=== PATIENT | female | born 1970 | race Caucasian/White ===

== ENCOUNTER 2016-05-17 13:02 | Emergency (ER) | payer OTHER ==
[~2016-05-17] VITALS: Ht 154.9 cm; Wt 70.7 kg
[~2016-05-17 13:02] MED LIST: HYDR-5688 PO; MELO7.5T5 PO; TRAM-10 PO
[2016-05-17 13:04] VITALS: TEMP 36.9; Ht 154.9 cm; Wt 70.7 kg
--- NOTE | 2016-05-17 14:15 | EMERGENCY ROOM VISIT NOTE ---
History First contact with patient: 13:52 Chief Complaint: ABDOMINAL PAIN Stated Complaint: STOMACH PAINS Nursing Triage Summary: abd pain and bloating passing no gas History of Present Illness The patient is a 45 year old female who presents to the Emergency Room with complaints of epigastric pain, which started 2 days ago, occurs intermittently, is sharp and localized with radiation laterally in abdomen but not into back or groin. Patient is unable to identify alleviating or exacerbating factors (does not feel any change upon sitting/standing/walking). She has not tried any new pain medications. This morning she awoke feeling nauseous with 3 episodes of vomiting, then dry heaving currently. Her last bowel bowel movement was 1 week ago. She has longstanding constipation but was concerned today with the abdominal pain and vomiting. She denies blood in stool. She took mineral oil and XLax, and Colace without effect. She has no urinary symptoms - no dysuria, frequency, urgency No fever and URI symptoms. No SOB no CP Sick contact: has stomach bug with diarrhea and vomiting. Personal history significant for Colonoscopy saw diverticulosis 20 years ago History of cholecystectomy GERD not on meds Started on [place] 300mg 3 weeks ago, which has been titrated up in the time since and is currently dosed at 1800mg TID Review of Systems See HPI for pertinent positives and negatives. A total of ten systems were reviewed and were otherwise negative. Past Medical/Surgical History Medical Problems: (1) Abdominal pain (2) Acute epigastric pain (3) Bilateral renal cysts (4) Chronic pain of right knee (5) Chronic pain of right knee (6) Epigastric abdominal pain (7) Epigastric abdominal pain (8) Flank pain (9) Flank pain (10) Gastritis (11) Intra-articular loose body (12) Intractable abdominal pain (13) Knee pain (14) Reflux (15) Right flank pain (16) Right flank pain (17) Right flank pain (18) Right upper quadrant abdominal pain (19) Ulcer (20) Uterine fibroid Surgical Problems: (1) History of cholecystectomy (2) History of tubal ligation (3) S/P ACL repair (4) S/P endometrial ablation Family History Patient reports no known family medical history. Social History Smoking Status: Former Smoker Alcohol Use: none Marital Status: in relationship Housing Status: lives with significant other Occupation Status: employed Current/Historical Medications Scheduled [place] Carbonate ([place] Carbonate), 600 MG PO TID Scheduled PRN Ondansetron Hcl (Zofran), 4 MG PO Q6 PRN for Nausea Allergies Coded Allergies: No Known Allergies (Verified , 05/17/16) Physical Exam Vital Signs Date Time Temp Pulse Resp B/P Pulse Ox O2 Delivery O2 Flow Rate FiO2 05/17/16 16:34 60 18 149/83 99 Room Air 05/17/16 15:45 61 18 165/97 96 Room Air 05/17/16 14:43 68 18 147/92 98 Room Air 05/17/16 13:04 36.9 66 20 155/92 100 Room Air Physical Exam GENERAL: alert, well appearing, well nourished, lying in bed, no acute distress , non-toxic HEAD: Normocephalic, atraumatic. No sinus tenderness. EYES: PERRL, EOMI, normal conjunctiva OROPHARYNX: no exudate, no erythema, lips, buccal mucosa, and tongue normal and mucous membranes are dry NECK: supple, no nuchal rigidity, no adenopathy, non-tender LUNGS: Clear to auscultation. Normal chest wall mechanics, good air entry. No crepitations, crackles, or wheezes HEART: no murmurs, S1 normal and S2 normal CHEST: No reproducible tenderness. ABDOMEN: abdomen soft, non-distended, mild epigastric tenderness, normo-active bowel sounds, no masses, no rebound or guarding. BACK: Back is symmetrical on inspection, no deformities, no midline tenderness, no CVA tenderness. SKIN: Warm, pink, dry. No erythema, rashes, or bruising. EXTREMITIES: Grossly normal. Moving all 4 limbs, strength 5/5. No pitting edema. Calves non tender. NEURO: Alert, Ox3. No focal deficits. Normal sensorium, cranial nerves II-XII grossly intact, normal speech. PSYCH: Mood and affect appropriate. Medical Decision & Procedures ER Provider Diagnostic Interpretation: PA CHEST RADIOGRAPH AND UPRIGHT AND SUPINE AP RADIOGRAPHS OF THE ABDOMEN CLINICAL HISTORY: Epigastric pain with nausea. COMPARISON STUDY: CT of the abdomen and pelvis July 17, 2014 and chest radiograph every 2013 FINDINGS: Lung volumes are normal. Lungs are clear. There is no pneumothorax or pleural effusion. Cardiac size is normal. Mediastinal contours are normal. There is a healed fracture of the midshaft of the left clavicle. There are cholecystectomy clips. There is no free air. Bowel gas pattern is normal. Pelvic calcifications represent phleboliths. IMPRESSION: 1. No free air or evidence of bowel obstruction. 2. No acute cardiopulmonary findings. Laboratory Results 05/17/16 14:40 Red Blood Count 4.57, Mean Corpuscular Volume 94.7, Mean Corpuscular Hemoglobin 33.3, Mean Corpuscular Hemoglobin Concent 35.1, Mean Platelet Volume 10.2, Neutrophils (%) (Auto) 78.0, Lymphocytes (%) (Auto) 16.4, Monocytes (%) (Auto) 4.4, Eosinophils (%) (Auto) 0.4, Basophils (%) (Auto) 0.4, Neutrophils # (Auto) 3.70, Lymphocytes # (Auto) 0.78, Monocytes # (Auto) 0.21, Eosinophils # (Auto) 0.02, Basophils # (Auto) 0.02 05/17/16 14:40 Test 05/17/16 14:12 05/17/16 14:40 Urine Color YELLOW Urine Appearance CLEAR (CLEAR) Urine pH 5.5 (4.5-7.5) Urine Specific [place] 1.005 (1.000-1.030) Urine Protein NEG (NEG) Urine Glucose (UA) NEG (NEG) Urine Ketones 1+ (NEG) Urine Occult Blood NEG (NEG) Urine Nitrite NEG (NEG) Urine Bilirubin NEG (NEG) Urine Urobilinogen NEG (NEG) Urine Leukocyte Esterase NEG (NEG) Urine Test NEG (NEG) White Blood Count 4.75 K/uL (4.8-10.8) Red Blood Count 4.57 M/uL (4.2-5.4) Hemoglobin 15.2 g/dL (12.0-16.0) Hematocrit 43.3 % (37-47) Mean Corpuscular Volume 94.7 fL (80-100) Mean Corpuscular Hemoglobin 33.3 pg (25-34) Mean Corpuscular Hemoglobin Concent 35.1 g/dl (32-36) Platelet Count 203 K/uL (130-400) Mean Platelet Volume 10.2 fL (7.4-10.4) Neutrophils (%) (Auto) 78.0 % Lymphocytes (%) (Auto) 16.4 % Monocytes (%) (Auto) 4.4 % Eosinophils (%) (Auto) 0.4 % Basophils (%) (Auto) 0.4 % Neutrophils # (Auto) 3.70 K/uL (1.4-6.5) Lymphocytes # (Auto) 0.78 K/uL (1.2-3.4) Monocytes # (Auto) 0.21 K/uL (0.11-0.59) Eosinophils # (Auto) 0.02 K/uL (0-0.5) Basophils # (Auto) 0.02 K/uL (0-0.2) RDW Standard Deviation 43.7 fL (36.4-46.3) RDW Coefficient of Variation 12.7 % (11.5-14.5) Immature Granulocyte % (Auto) 0.4 % Immature Granulocyte # (Auto) 0.02 K/uL (0.00-0.02) Anion Gap 8.0 mmol/L (3-11) Est Creatinine Clear Calc Drug Dose 64.5 ml/min Estimated GFR () 79.8 Estimated GFR (Non- 68.8 BUN/Creatinine Ratio 11.2 (10-20) Calcium Level 8.9 mg/dl (8.5-10.1) Total Bilirubin 0.7 mg/dl (0.2-1) Direct Bilirubin 0.1 mg/dl (0-0.2) Aspartate Amino Transf (AST/SGOT) 14 U/L (15-37) Alanine Aminotransferase (ALT/SGPT) 23 U/L (12-78) Alkaline Phosphatase 136 U/L (45-117) Total Protein 7.4 gm/dl (6.4-8.2) Albumin 4.1 gm/dl (3.4-5.0) Lipase 104 U/L (73-393) Medications Administered Medications (Trade) Dose Ordered Sig/Chelly Route Start Time Stop Time Status Last Admin Dose Admin Ondansetron HCl (Zofran Inj) 4 mg TODAY@1440 IV 05/17/16 14:40 05/17/16 15:40 DC 05/17/16 15:44 4 MG Medical Decision 45 year old female presented with epigastric pain and nausea The patient was evaluated in room C3. A complete history and physical exam was performed. Etiologies such as appendicitis, diverticulitis, inflammatory bowel disease, renal colic, PUD, biliary pathology, pancreatitis, mesenteric ischemia, aortic pathology, infections, genitourinary, UTI, perforated viscus, as well as others were entertained. Patient was given 4mg IV Zofran for symptom relief. Lab work was performed. CBC, BMP, LFT, and lipase were all within normal limits. Abdominal series reported no free air or evidence of bowel obstruction and no acute cardiopulmonary findings. Urine screen was negative for , and urinalysis showed dehydration but no evidence of urinary infection. Likely diagnosis is GERD and constipation. As such, patient prescribed Zofran 4mg q6hrs PRN nausea. Advised to resume GERD medication- she does not recall which ones she was on previously, but was told to start with OTC Pepcid or omeprazole and then follow up with PCP for customized plan. For constipation, patient advised to commence a regular regimen of OTC methyl cellulose, and this may be another discussion to have with the PCP. Finally patient strongly encouraged to increased oral intake of water to improve hydration status. Patient understands and agreeable with care plan. Patient discharged home well. Impression Primary Impression: Epigastric abdominal pain Additional Impression: Chronic constipation Departure Information Dispostion Home / Self-Care Condition GOOD Prescriptions Ondansetron Hcl (ZOFRAN) 4 Mg Tab 4 MG PO Q6 Y for Nausea, #10 TAB Prov: Mackenzie Mendez.MD 05/17/16 Referrals Asa Hurtado M.D. (PCP) Additional Instructions You were seen in the ED today for abdominal pain. All your labs were normal - no signs of infection, your kidneys, liver and pancreas are working well. Your urine did not show any infection but did reveal a level of dehydration. Your chest xray showed no evidence of bowel obstruction or perforation and no acute cardiopulmonary findings. It is probable that your symptoms are a result of acid reflux and constipation As such, we recommend that you resume ant-acid medication. Both omeprazole and Pepcid are opotions you can get over the counter, and you can take them as per box instructions. You may also follow up with your PCP who might be able to discuss a suitable regimen option with you. In the meantime, you have been prescribed a short duration of anti-nausea medication, Zofran 4mg to be taken at least 6 hours apart whenever you feel nauseous. For your constipation, Citrucel (methyl cellulose) is usually a well tolerated regimen, also available over the counter. Again, you may follow up with your PCP who might be able to discuss a suitable, customized regimen option with you. You have been examined and treated today on an emergency basis only. This is not a substitute for, or an effort to provide, complete comprehensive medical care. It is impossible to recognize and treat all injuries or illnesses in a single emergency department visit. It is therefore important that you make a follow up with your physician for close monitoring. Return for worsening symptoms or if you develop fever, vomiting, or any other concerning symptoms.
[2016-05-17] MEDS ORDERED: ONDANSETRON INJ 2 MG/ML 2 ML VIAL IV SCH (14:40)
--- NOTE | 2016-05-17 14:47 | EMERGENCY ROOM VISIT NOTE ---
History Report prepared by Anni: Starr Cedeno Under the Supervision of: Dr. Luis E Rowland D.O. First contact with patient: 14:25 Chief Complaint: ABDOMINAL PAIN Stated Complaint: STOMACH PAINS Nursing Triage Summary: abd pain and bloating passing no gas History of Present Illness The patient is a 45 year old female who presents to the Emergency Room with complaints of intermittent epigastric pain for the past 2 days. She describes the pain as feeling sharp and rates it as a 7/10 in intensity. The patient is unable to identify anything that makes her discomfort better or worse. She has not tried taking any medications for her discomfort. She admits to nausea with 3 episodes of vomiting over the past 2 days and some dry heaving for the past day. Her last bowel movement was 1 week ago and she admits to a long history of constipation. She tried taking mineral oil and Ex-Lax, Colace with no relief. She denies any melena or hematochezia. She denies any dysuria, increased urinary frequency or urgency. She has not experienced any fevers, shortness of breath or chest pain. The patient admits her now has a stomach bug with diarrhea and vomiting. She last underwent a colonoscopy about 20 years ago and states diverticulosis was seen. She also has a history of GERD, but does not take daily medications for it. The patient notes she was started on [place] 3 weeks ago, at 300 mg, and it was recently increased to 1800 mg TID. 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 A total of ten systems were reviewed and were otherwise negative. Past Medical & Surgical Medical Problems: (1) Abdominal pain (2) Acute epigastric pain (3) Bilateral renal cysts (4) Chronic pain of right knee (5) Chronic pain of right knee (6) Epigastric abdominal pain (7) Epigastric abdominal pain (8) Flank pain (9) Flank pain (10) Gastritis (11) Intra-articular loose body (12) Intractable abdominal pain (13) Knee pain (14) Reflux (15) Right flank pain (16) Right flank pain (17) Right flank pain (18) Right upper quadrant abdominal pain (19) Ulcer (20) Uterine fibroid Surgical Problems: (1) History of cholecystectomy (2) History of tubal ligation (3) S/P ACL repair (4) S/P endometrial ablation Family History Patient reports no known family medical history. Social History Smoking Status: Former Smoker Alcohol Use: none Marital Status: in relationship Housing Status: lives with significant other Occupation Status: employed Current/Historical Medications Scheduled [place] Carbonate ([place] Carbonate), 600 MG PO TID Scheduled PRN Ondansetron Hcl (Zofran), 4 MG PO Q6 PRN for Nausea Allergies Coded Allergies: No Known Allergies (Verified , 05/17/16) Physical Exam Vital Signs Date Time Temp Pulse Resp B/P Pulse Ox O2 Delivery O2 Flow Rate FiO2 05/17/16 16:34 60 18 149/83 99 Room Air 05/17/16 15:45 61 18 165/97 96 Room Air 05/17/16 14:43 68 18 147/92 98 Room Air 05/17/16 13:04 36.9 66 20 155/92 100 Room Air Physical Exam GENERAL: Awake, alert, well-appearing, in no acute distress ABDOMEN: Soft, non-tender, mildly distended without tympany, benign and no peritoneal signs. Medical Decision & Procedures ER Provider Diagnostic Interpretation: This X-Ray was reviewed and interpreted by myself and the radiologist. PA CHEST RADIOGRAPH AND UPRIGHT AND SUPINE AP RADIOGRAPHS OF THE ABDOMEN IMPRESSION: 1. No free air or evidence of bowel obstruction. 2. No acute cardiopulmonary findings. Electronically signed by: Main Vaughn M.D. 05/17/2016 3:30 PM Laboratory Results 05/17/16 14:40 Red Blood Count 4.57, Mean Corpuscular Volume 94.7, Mean Corpuscular Hemoglobin 33.3, Mean Corpuscular Hemoglobin Concent 35.1, Mean Platelet Volume 10.2, Neutrophils (%) (Auto) 78.0, Lymphocytes (%) (Auto) 16.4, Monocytes (%) (Auto) 4.4, Eosinophils (%) (Auto) 0.4, Basophils (%) (Auto) 0.4, Neutrophils # (Auto) 3.70, Lymphocytes # (Auto) 0.78, Monocytes # (Auto) 0.21, Eosinophils # (Auto) 0.02, Basophils # (Auto) 0.02 05/17/16 14:40 Test 05/17/16 14:12 05/17/16 14:40 Urine Color YELLOW Urine Appearance CLEAR (CLEAR) Urine pH 5.5 (4.5-7.5) Urine Specific [place] 1.005 (1.000-1.030) Urine Protein NEG (NEG) Urine Glucose (UA) NEG (NEG) Urine Ketones 1+ (NEG) Urine Occult Blood NEG (NEG) Urine Nitrite NEG (NEG) Urine Bilirubin NEG (NEG) Urine Urobilinogen NEG (NEG) Urine Leukocyte Esterase NEG (NEG) Urine Test NEG (NEG) White Blood Count 4.75 K/uL (4.8-10.8) Red Blood Count 4.57 M/uL (4.2-5.4) Hemoglobin 15.2 g/dL (12.0-16.0) Hematocrit 43.3 % (37-47) Mean Corpuscular Volume 94.7 fL (80-100) Mean Corpuscular Hemoglobin 33.3 pg (25-34) Mean Corpuscular Hemoglobin Concent 35.1 g/dl (32-36) Platelet Count 203 K/uL (130-400) Mean Platelet Volume 10.2 fL (7.4-10.4) Neutrophils (%) (Auto) 78.0 % Lymphocytes (%) (Auto) 16.4 % Monocytes (%) (Auto) 4.4 % Eosinophils (%) (Auto) 0.4 % Basophils (%) (Auto) 0.4 % Neutrophils # (Auto) 3.70 K/uL (1.4-6.5) Lymphocytes # (Auto) 0.78 K/uL (1.2-3.4) Monocytes # (Auto) 0.21 K/uL (0.11-0.59) Eosinophils # (Auto) 0.02 K/uL (0-0.5) Basophils # (Auto) 0.02 K/uL (0-0.2) RDW Standard Deviation 43.7 fL (36.4-46.3) RDW Coefficient of Variation 12.7 % (11.5-14.5) Immature Granulocyte % (Auto) 0.4 % Immature Granulocyte # (Auto) 0.02 K/uL (0.00-0.02) Anion Gap 8.0 mmol/L (3-11) Est Creatinine Clear Calc Drug Dose 64.5 ml/min Estimated GFR () 79.8 Estimated GFR (Non- 68.8 BUN/Creatinine Ratio 11.2 (10-20) Calcium Level 8.9 mg/dl (8.5-10.1) Total Bilirubin 0.7 mg/dl (0.2-1) Direct Bilirubin 0.1 mg/dl (0-0.2) Aspartate Amino Transf (AST/SGOT) 14 U/L (15-37) Alanine Aminotransferase (ALT/SGPT) 23 U/L (12-78) Alkaline Phosphatase 136 U/L (45-117) Total Protein 7.4 gm/dl (6.4-8.2) Albumin 4.1 gm/dl (3.4-5.0) Lipase 104 U/L (73-393) Laboratory results reviewed by me Medications Administered Medications (Trade) Dose Ordered Sig/Chelly Route Start Time Stop Time Status Last Admin Dose Admin Ondansetron HCl (Zofran Inj) 4 mg TODAY@1440 IV 05/17/16 14:40 05/17/16 15:40 DC 05/17/16 15:44 4 MG ED Course 1440: Zofran 4 mg IV. 1445: The patient was evaluated in room C3. A complete history and physical exam was performed. 1700: I reevaluated the patient. She is feeling better. I discussed her results and discharge instructions and she verbalized complete understanding and agreement. Medical Decision Prior records/ancillary studies reviewed. Triage Nursing notes reviewed and agree them. The patient's history was concerning for abdominal pain. Differential diagnosis: Etiologies such as appendicitis, diverticulitis, PUD, biliary pathology, UTI, pancreatitis, obstruction, mesenteric ischemia, aortic pathology, infections, inflammatory bowel disease, renal colic, as well as others were entertained. MDM: Patient is a 45-year-old female with complaint of Abdominal pain she's had no bowel movement in several days she states she typically only has one bowel movement per week to 1 month. This is due to severe anxiety of moving her bowels in public. This is a long-time chronic condition. Her last bowel movement was typical for her. She states that she feels bloated. Nothing exacerbates the pain and nothing made the pain better she states that she's had 3 episodes of vomiting the last 24 hours. Primarily pain is in the flanks bilaterally. As well as epigastric pain. She does have a history of GERD. She states that she quit taking medications for that a while ago. She is wondering whether she should restart medications. She is primarily looking for a symptomatic support. We will check labs and x-rays. Labs and X-ray unrevealing for any significant abnormalities. I supervised the resident with her evaluation and treatment course. Please see the resident's note for further details. The patient's presentation and history is c/w the impression provided. A partial list of DDx that has been considered is listed above. By the evaluation outlined above other emergent etiologies such as those listed in the differential, as well as others, were deemed relatively unlikely. The patient has been informed about today's findings. All questions were answered to satisfaction and understanding. They are pleased with the care provided. Patient education and return instructions were discussed as per my usual and the patient was discharged in stable condition as agreed upon by the patient. The patient was referred for close follow-up and informed that they will need to call to schedule appointment during the next business hours. The chart was completed utilizing a scribe and [employer] Speech voice recognition software. Utilizing these services results in errors at time as they are imperfect. Grammatical errors, random word insertions, pronoun errors, and incomplete sentences are an occasional consequence of this system due to software limitations, ambient noise, and hardware issues. Any formal questions or concerns about the content, text, or information contained within the body of this dictation should be directly addressed to the physician for clarification. Impression Primary Impression: Undifferentiated abdominal pain Additional Impression: Chronic constipation Scribe Attestation The scribe's documentation has been prepared under my direction and personally reviewed by me in its entirety. I confirm that the note above accurately reflects all work, treatment, procedures, and medical decision making performed by me. Departure Information Dispostion Home / Self-Care Prescriptions Ondansetron Hcl (ZOFRAN) 4 Mg Tab 4 MG PO Q6 Y for Nausea, #10 TAB Prov: Alka. Mendez MD 05/17/16 Referrals Asa Hurtado M.D. (PCP) Patient Instructions Constipation, GERD Infs, GERD Lifestyle Changes, GERD Meds Additional Instructions You were seen in the ED today for abdominal pain. All your labs were normal - no signs of infection, your kidneys, liver and pancreas are working well. Your urine did not show any infection but did reveal a level of dehydration. Your chest xray showed no evidence of bowel obstruction or perforation and no acute cardiopulmonary findings. It is probable that your symptoms are a result of acid reflux and constipation As such, we recommend that you resume ant-acid medication. Both omeprazole and Pepcid are opotions you can get over the counter, and you can take them as per box instructions. You may also follow up with your PCP who might be able to discuss a suitable regimen option with you. In the meantime, you have been prescribed a short duration of anti-nausea medication, Zofran 4mg to be taken at least 6 hours apart whenever you feel nauseous. For your constipation, Citrucel (methyl cellulose) is usually a well tolerated regimen, also available over the counter. Again, you may follow up with your PCP who might be able to discuss a suitable, customized regimen option with you. You have been examined and treated today on an emergency basis only. This is not a substitute for, or an effort to provide, complete comprehensive medical care. It is impossible to recognize and treat all injuries or illnesses in a single emergency department visit. It is therefore important that you make a follow up with your physician for close monitoring. Return for worsening symptoms or if you develop fever, vomiting, or any other concerning symptoms.
[2016-05-17 14:57] LABS: BASO % 0.4 %; BASO ABS # 0.02 K/uL (0-0.2); COMPLETE YES; EOS % 0.4 %; HEMATOCRIT 43.3 % (37-47); IG% 0.4 %; LYMPH % 16.4 %; LYMPH ABS # 0.78 K/uL (1.2-3.4); MEAN CELL VOLUME 94.7 fL (80-100); MEAN CORPUSCULAR HEMOGLOBIN 33.3 pg (25-34); MEAN CORPUSCULAR HGB CONC 35.1 g/dl (32-36); MEAN PLATELET VOLUME 10.2 fL (7.4-10.4); MONO % 4.4 %; PLATELET COUNT 203 K/uL (130-400); RED BLOOD COUNT 4.57 M/uL (4.2-5.4); WHITE BLOOD COUNT 4.75 K/uL (4.8-10.8)
[2016-05-17 15:09] LABS: URINE APPEARANCE CLEAR (CLEAR); URINE BILIRUBIN NEG (NEG); URINE COLOR YELLOW; URINE NITRITE NEG (NEG); URINE PH 5.5 (4.5-7.5); URINE SPECIFIC GRAVITY 1.005 (1.000-1.030); UROBILINOGEN NEG (NEG); ZZUR CULT IF INDIC CLEAN CATCH NO
[2016-05-17 15:14] LABS: PREG INTERNAL NEGATIVE QC NEG CLEAR BACKGROUND; PREG INTERNAL POSITIVE QC POS CONTROL LINE
[2016-05-17 15:22] LABS: BUN/CREATININE RATIO 11.2 (10-20); CALCIUM 8.9 mg/dl (8.5-10.1); CREATININE 0.99 mg/dl (0.60-1.20); POTASSIUM 3.9 mmol/L (3.5-5.1)
[2016-05-17 15:25] LABS: MANUAL MICROSCOPIC REQUIRED? NO; REVIEW REQ? NO
--- NOTE | 2016-05-17 15:31 | DIAGNOSTIC IMAGING REPORT ---
PA CHEST RADIOGRAPH AND UPRIGHT AND SUPINE AP RADIOGRAPHS OF THE ABDOMEN CLINICAL HISTORY: Epigastric pain with nausea. COMPARISON STUDY: CT of the abdomen and pelvis July 17, 2014 and chest radiograph every 2013 FINDINGS: Lung volumes are normal. Lungs are clear. There is no pneumothorax or pleural effusion. Cardiac size is normal. Mediastinal contours are normal. There is a healed fracture of the midshaft of the left clavicle. There are cholecystectomy clips. There is no free air. Bowel gas pattern is normal. Pelvic calcifications represent phleboliths. IMPRESSION: 1. No free air or evidence of bowel obstruction. 2. No acute cardiopulmonary findings. Electronically signed by: Main Vaughn M.D. 05/17/2016 3:30 PM
[2016-05-17] MEDS ORDERED: ONDA4TAB46 PO (16:33)
[2016-05-17 16:34] VITALS: BP 149/83; PULSE 60; O2SAT 99
[2016-08-04] MEDS ORDERED: LITH600C PO (14:22)
== END 2016-05-17 16:54 | disposition home or self-care (01) ==
LOC: C.EDB 13:02 → C.EDC 16:54
DX: R10.13 Epigastric pain (principal); K59.09 Other constipation; Z90.49 Acquired absence of other specified parts of digestive tract; K21.9 Gastro-esophageal reflux disease without esophagitis; G89.29 Other chronic pain; M25.561 Pain in right knee; Z98.51 Tubal ligation status; Z87.891 Personal history of nicotine dependence; Z79.899 Other long term (current) drug therapy

== ENCOUNTER 2016-05-22 18:37 | Emergency (ER) | payer OTHER ==
[~2016-05-22] VITALS: Ht 154.9 cm; Wt 71.0 kg
[~2016-05-22 18:37] MED LIST changes: -HYDR-5688 PO; -MELO7.5T5 PO; +ONDA4TAB46 PO; -TRAM-10 PO
[2016-05-22 18:40] VITALS: TEMP 36.8; Ht 154.9 cm; Wt 71.0 kg
--- NOTE | 2016-05-22 19:21 | DIAGNOSTIC IMAGING REPORT ---
PA CHEST RADIOGRAPH AND UPRIGHT AND SUPINE AP RADIOGRAPHS OF THE ABDOMEN CLINICAL HISTORY: Abdominal pain. Constipation. Bloating. COMPARISON STUDY: Chest radiograph and abdominal series May 17, 2016. FINDINGS: Lung volumes are normal. Lungs are clear. Pulmonary vascularity is normal. Cardiac size is normal as are mediastinal contours. There is no free air. There are cholecystectomy clips. A few prominent loops of small bowel are noted within the left mid abdomen. There is no convincing evidence for a bowel obstruction. Pelvic calcifications represent phleboliths. There are cholecystectomy clips. There is a moderate amount of stool within the ascending colon. The amount of stool within the remainder of the colon and rectum is within normal limits. IMPRESSION: 1. No free air. 2. A few prominent loops of small bowel without convincing evidence for a bowel obstruction. 3. No acute cardiopulmonary findings. Electronically signed by: Main Vaughn M.D. 05/22/2016 7:20 PM Dictated Date/Time: 05/22/2016 7:17 PM
[2016-05-22] MEDS ORDERED: SOAP SUDS ENEMA PR STA (19:35)
--- NOTE | 2016-05-22 20:37 | EMERGENCY ROOM VISIT NOTE ---
History Report prepared by Anni: Eli Braxton Under the Supervision of: Dr. Moreno De Santiago M.D. First contact with patient: 18:47 Chief Complaint: CONSTIPATION Stated Complaint: CONSTIPATION History of Present Illness The patient is a 45 year old female who presents to the Emergency Room with complaints of persistent constipation that started one week ago. She tried to relieve the constipation with MiraLAX, Ex-lax, enemas, and stool softeners but nothing has offered her any relief. The patient is also experiencing epigastric abdominal pain, increased abdominal bloating, nausea, and vomiting. The patient states that she has not had anything to eat or drink all day. She denies back pain, urinary symptoms, numbness, weakness, rectal pain, and leg pain. The patient came to the ED 5 days ago for similar symptoms and an x-ray at that time was unremarkable. She also saw her PCP this morning for her symptoms. He recommended doing a fleet enema. He told her that if the enema didn't work that she should come into the ED. She denies recent pain medication use. The patient has a history of constipation but she has never been evaluated by GI for constipation. The patient denies any previous abdominal surgeries as well as any chance of . Source of History: patient Onset: one week ago Position: abdomen Quality: other (constipation) Timing: other (persistent) Modifying Factors (Relieving): other (none) Associated Symptoms: + abdominal pain (epigastric), + nausea, + vomiting, No back pain, No numbness, No urinary symptoms, No weakness Note: increased abdominal bloating, no rectal pain, no leg pain Review of Systems See HPI for pertinent positives & negatives. A total of 10 systems reviewed and were otherwise negative. Past Medical & Surgical Medical Problems: (1) Abdominal pain (2) Acute epigastric pain (3) Bilateral renal cysts (4) Chronic pain of right knee (5) Chronic pain of right knee (6) Epigastric abdominal pain (7) Epigastric abdominal pain (8) Flank pain (9) Flank pain (10) Gastritis (11) Intra-articular loose body (12) Intractable abdominal pain (13) Knee pain (14) Reflux (15) Right flank pain (16) Right flank pain (17) Right flank pain (18) Right upper quadrant abdominal pain (19) Ulcer (20) Uterine fibroid Surgical Problems: (1) History of cholecystectomy (2) History of tubal ligation (3) S/P ACL repair (4) S/P endometrial ablation Family History Patient reports no known family medical history. Social History Smoking Status: Former Smoker Alcohol Use: none Marital Status: in relationship Housing Status: lives with significant other Occupation Status: employed Current/Historical Medications Scheduled Hardtner Carbonate (Hardtner Carbonate), 600 MG PO TID Scheduled PRN Ondansetron Hcl (Zofran), 4 MG PO Q6 PRN for Nausea Allergies Coded Allergies: No Known Allergies (Verified , 05/17/16) Physical Exam Vital Signs Date Time Temp Pulse Resp B/P Pulse Ox O2 Delivery O2 Flow Rate FiO2 05/22/16 18:40 36.8 76 20 160/99 100 Room Air Physical Exam General: Well developed well nourished non-ill appearing middle-aged female in no acute distress, breathing comfortably on room air. Normal speech HEENT: Normal cephalic atraumatic. Pupils are equal round and reactive to light. Extraocular movements are intact. Oropharynx is pink with moist mucous membranes. No swelling of the mouth lips or tongue. Neck: Supple with a midline trachea. No meningeal signs or stiffness, no JVD or bruits. No Stridor. Chest: Clear to auscultation bilaterally. No wheezes or rhonchi. No increased work of breathing. Heart: regular rate and rhythm. Abdomen: Soft. mildly distended but nontender, normal bowel sounds, without rebound guarding or rigidity. Extremities: No cyanosis clubbing or edema. No calf tenderness or assymetry Spine/Back. Non tender to palpation. No CVA tenderness Skin: Good turgor without rashes. Neurologic exam: Cranial nerves two through 12 are intact. Motor and sensation are intact and symmetrical throughout. Medical Decision & Procedures ER Provider Diagnostic Interpretation: X-ray results as stated below per interpretation by me and the radiologist: PA CHEST RADIOGRAPH AND UPRIGHT AND SUPINE AP RADIOGRAPHS OF THE ABDOMEN MY IMPRESSION: No free air. One dilated loop of bowel but no definite obstruction otherwise. Large amount of stool. IMPRESSION: 1. No free air. 2. A few prominent loops of small bowel without convincing evidence for a bowel obstruction. 3. No acute cardiopulmonary findings. Electronically signed by: Main Vaughn M.D. 05/22/2016 7:20 PM Dictated Date/Time: 05/22/2016 7:17 PM Medications Administered Medications (Trade) Dose Ordered Sig/Chelly Route Start Time Stop Time Status Last Admin Dose Admin Miscellaneous (Soap Suds Enema) 1 ea ONE STAT RI 05/22/16 19:35 05/22/16 19:37 DC 05/22/16 19:35 1 ED Course 1847: Past medical records reviewed. The patient was evaluated in room C9, and a complete history and physical examination were performed. 1934: Ordered Soap Suds Enema 1 ea RI 1938: I reassessed the patient. She is back from x-ray and awaiting a soap suds enema. 2024: Patient did have pass a fair amount of stool with the soapsuds enema and is feeling a lot better and up to going home. Medical Decision Differentials include, but are not limited to; constipation, bowel obstruction, infection. This patient comes in as described above. She has had constipation for about a week. She does suffer from chronic constipation. She has normal motor and sensation and has nothing to suggest cauda equina syndrome. She has normal bladder function. I did do an acute abdominal series and she has no obstruction or free air. Abdomen is benign. She has no peritonitis or anything to suggest infection or surgical process. She was given a soapsuds enema and had success with this and passed stool and is feeling a lot better. She will be discharged to home. She is resting comfortably. She should drink plenty fluids, use stool softeners needed. Return if: Worsening of symptoms, fever or chills, any new problems or concerns. Follow-up with her doctor this week for recheck. Impression Primary Impression: Constipation Additional Impression: Abdominal bloating Scribe Attestation The scribe's documentation has been prepared under my direction and personally reviewed by me in its entirety. I confirm that the note above accurately reflects all work, treatment, procedures, and medical decision making performed by me. Departure Information Referrals Asa Hurtado M.D. (PCP) Patient Instructions A Signature Page, My [facility]
[2016-05-22 20:43] VITALS: BP 157/117; PULSE 67; O2SAT 98
[2016-08-04] MEDS ORDERED: LITH600C PO (14:22)
== END 2016-05-22 20:44 | disposition home or self-care (01) ==
LOC: C.EDB 18:38 → C.EDC 20:44
DX: K59.00 Constipation, unspecified (principal); R14.0 Abdominal distension (gaseous); Z87.891 Personal history of nicotine dependence

== ENCOUNTER 2016-08-04 19:02 | Emergency (ER) | payer OTHER ==
[~2016-08-04] VITALS: Ht 154.9 cm; Wt 72.8 kg
[~2016-08-04 19:02] MED LIST changes: +LITH600C PO
[2016-08-04 19:04] VITALS: TEMP 37; Ht 154.9 cm; Wt 72.8 kg
[2016-08-04] MEDS ORDERED: SODIUM CHLORIDE 0.9% 1000ML 1,000 ML IV STA (19:24)
--- NOTE | 2016-08-04 19:33 | EMERGENCY ROOM VISIT NOTE ---
History First contact with patient: 19:15 Chief Complaint: ABDOMINAL PAIN Stated Complaint: STOMACH PROBLEMS Nursing Triage Summary: patient c/o upper quadrant abdominal pain for past week along with abdominal distention. patient states she has no appetite and has had episodes of dirrhea. also states the abdominal pressure makes her feel difficulty with breathing. History of Present Illness The patient is a 45 year old female who presents to the Emergency Room with complaints of abdominal pain. The patient states that she has had pain in the epigastric area for the last 1 week. She states that she saw gastroenterology 2 days ago. She states that they planned to schedule her for an EGD. The patient states the pain is in the epigastrium. She reports bloating in the abdomen. She states the pain is worse when lying flat at night and she feels a burning sensation up to her throat. She rates her discomfort an 8/10. She denies any pain in her chest. She states she does have some difficulty breathing because her abdomen feels tight and bloated. She denies nausea or vomiting. She denies diarrhea. She denies any hematemesis, hematochezia or melena. She denies any urinary symptoms. She has had cholecystectomy in the past. She has been having constipation issues over the last several months. She was started on Lynzess by GI. Review of Systems A 10 system review of systems was completed with positives and pertinent negatives listed in the HPI. Past Medical/Surgical History Medical Problems: (1) Abdominal pain (2) Acute epigastric pain (3) Bilateral renal cysts (4) Chronic pain of right knee (5) Chronic pain of right knee (6) Epigastric abdominal pain (7) Epigastric abdominal pain (8) Flank pain (9) Flank pain (10) Gastritis (11) Intra-articular loose body (12) Intractable abdominal pain (13) Knee pain (14) Reflux (15) Right flank pain (16) Right flank pain (17) Right flank pain (18) Right upper quadrant abdominal pain (19) Ulcer (20) Uterine fibroid Surgical Problems: (1) History of cholecystectomy (2) History of tubal ligation (3) S/P ACL repair (4) S/P endometrial ablation Family History Patient reports no known family medical history. Social History Smoking Status: Former Smoker Alcohol Use: none Marital Status: in relationship Housing Status: lives with significant other Occupation Status: employed Current/Historical Medications Scheduled Linaclotide (Linzess), 290 MCG PO DAILY Pomaria Carbonate (Pomaria Carbonate), 1,200 MG PO AMPM Omeprazole (Prilosec), 20 MG PO BID Propranolol (Inderal), 20 MG PO BID Sucralfate (Sucralfate), 1 GM PO ACHS Allergies Coded Allergies: No Known Allergies (Verified , 08/04/16) Physical Exam Vital Signs Date Time Temp Pulse Resp B/P Pulse Ox O2 Delivery O2 Flow Rate FiO2 08/04/16 20:54 63 18 152/81 100 Room Air 08/04/16 19:40 65 20 149/83 100 Room Air 08/04/16 19:26 73 08/04/16 19:04 37.0 88 20 159/101 100 Room Air Physical Exam VITALS: Vitals are noted on the nurse's note and reviewed by myself. Vital signs stable. The patient is afebrile. GENERAL: This is a 45-year-old female, in no acute distress, nondiaphoretic, well-developed well-nourished. SKIN: The skin was without rashes, erythema, edema, or bruising. There is no tenting of the skin. Capillary reflex less than 2 seconds. HEAD: Normocephalic atraumatic. EARS: External auditory canals clear, tympanic membranes pearly shell without erythema or effusion bilaterally. EYES: Pupils equal round and reactive to light and accommodation. Conjunctivae without injection, sclerae without icterus. Extraocular movements intact. NOSE: Patent, turbinates without inflammation or discharge. MOUTH: Mucous membranes moist. Tonsils are not enlarged. Pharynx without erythema or exudate. Uvula midline. Airway patent. Tongue does not deviate. NECK: Supple without nuchal rigidity. No JVD. HEART: Regular rate and rhythm without murmurs gallops or rubs. LUNGS: Clear to auscultation bilaterally without wheezes, rales or rhonchi. No retractions or accessory muscle use. ABDOMEN: Positive bowel sounds x 4. Distended but soft. Soft, moderate epigastric tenderness, without masses or organomegaly. MUSCULOSKELETAL: No muscle atrophy, erythema, or edema noted. Full range of motion in all extremities. Normal gait. Strength 5/5 throughout. NEURO: Patient was alert and oriented to person place and time. No focal neurological deficits. Medical Decision & Procedures ER Provider Diagnostic Interpretation: [~ rep ct add3]] PA CHEST WITH ABDOMINAL SERIES CLINICAL HISTORY: Upper abdominal pain. Bloating. FINDINGS: A PA chest radiograph is compared to study dated 05/22/2016. The cardiomediastinal silhouette is unremarkable. The lungs and pleural spaces are clear. No pneumothorax is seen. There is chronic posttraumatic deformity of the left clavicle. Supine and erect abdominal radiographs are compared to study dated 05/22/2016 and correlated with abdominal CT dated 07/17/2014. Cholecystectomy clips are seen in the right upper quadrant. There is a nonobstructed abdominal bowel gas pattern. Moderate colonic fecal retention is noted. No intraperitoneal free air is seen. There are numerous phleboliths in the pelvis. The lumbosacral spine and bony pelvis appear intact. IMPRESSION: 1. No active disease in the chest. 2. Nonobstructed abdominal bowel gas pattern noting moderate colonic fecal retention. Laboratory Results 08/04/16 19:20 Red Blood Count 4.31, Mean Corpuscular Volume 96.5, Mean Corpuscular Hemoglobin 32.3, Mean Corpuscular Hemoglobin Concent 33.4, Mean Platelet Volume 10.2, Neutrophils (%) (Auto) 64.8, Lymphocytes (%) (Auto) 26.5, Monocytes (%) (Auto) 5.0, Eosinophils (%) (Auto) 2.6, Basophils (%) (Auto) 0.6, Neutrophils # (Auto) 5.54, Lymphocytes # (Auto) 2.26, Monocytes # (Auto) 0.43, Eosinophils # (Auto) 0.22, Basophils # (Auto) 0.05 08/04/16 19:20 Test 08/04/16 19:20 08/04/16 19:45 White Blood Count 8.54 K/uL (4.8-10.8) Red Blood Count 4.31 M/uL (4.2-5.4) Hemoglobin 13.9 g/dL (12.0-16.0) Hematocrit 41.6 % (37-47) Mean Corpuscular Volume 96.5 fL (80-100) Mean Corpuscular Hemoglobin 32.3 pg (25-34) Mean Corpuscular Hemoglobin Concent 33.4 g/dl (32-36) Platelet Count 296 K/uL (130-400) Mean Platelet Volume 10.2 fL (7.4-10.4) Neutrophils (%) (Auto) 64.8 % Lymphocytes (%) (Auto) 26.5 % Monocytes (%) (Auto) 5.0 % Eosinophils (%) (Auto) 2.6 % Basophils (%) (Auto) 0.6 % Neutrophils # (Auto) 5.54 K/uL (1.4-6.5) Lymphocytes # (Auto) 2.26 K/uL (1.2-3.4) Monocytes # (Auto) 0.43 K/uL (0.11-0.59) Eosinophils # (Auto) 0.22 K/uL (0-0.5) Basophils # (Auto) 0.05 K/uL (0-0.2) RDW Standard Deviation 45.4 fL (36.4-46.3) RDW Coefficient of Variation 12.9 % (11.5-14.5) Immature Granulocyte % (Auto) 0.5 % Immature Granulocyte # (Auto) 0.04 K/uL (0.00-0.02) Prothrombin Time 9.7 SECONDS (9.0-12.0) Prothromb Time International Ratio 0.9 (0.9-1.1) Activated Partial Thromboplast Time 26.5 SECONDS (21.0-31.0) Partial Thromboplastin Ratio 1.0 D-Dimer 300 ug/L FEU (0-500) Urine Color YELLOW Urine Appearance CLEAR (CLEAR) Urine pH 7.0 (4.5-7.5) Urine Specific [place] 1.007 (1.000-1.030) Urine Protein NEG (NEG) Urine Glucose (UA) NEG (NEG) Urine Ketones NEG (NEG) Urine Occult Blood NEG (NEG) Urine Nitrite NEG (NEG) Urine Bilirubin NEG (NEG) Urine Urobilinogen NEG (NEG) Urine Leukocyte Esterase NEG (NEG) Anion Gap 7.0 mmol/L (3-11) Est Creatinine Clear Calc Drug Dose 73.6 ml/min Estimated GFR () 92.0 Estimated GFR (Non- 79.3 BUN/Creatinine Ratio 15.3 (10-20) Calcium Level 9.4 mg/dl (8.5-10.1) Total Bilirubin 0.2 mg/dl (0.2-1) Aspartate Amino Transf (AST/SGOT) 10 U/L (15-37) Alanine Aminotransferase (ALT/SGPT) 17 U/L (12-78) Alkaline Phosphatase 115 U/L (45-117) Troponin I < 0.015 ng/ml (0-0.045) Total Protein 7.5 gm/dl (6.4-8.2) Albumin 4.0 gm/dl (3.4-5.0) Globulin 3.5 gm/dl (2.5-4.0) Albumin/Globulin Ratio 1.1 (0.9-2) Lipase 160 U/L (73-393) Lactic Acid Level 1.4 mmol/L (0.4-2.0) Medications Administered Medications (Trade) Dose Ordered Sig/Chelly Route Start Time Stop Time Status Last Admin Dose Admin Sodium Chloride (Nss 1000ml) 1,000 ml @ 999 mls/hr Q1H1M STAT IV 08/04/16 19:24 08/04/16 20:24 DC 08/04/16 19:40 999 MLS/HR Lidocaine HCl (Viscous Lidocaine 2% Soln) 10 ml NOW STAT PO 08/04/16 20:49 08/04/16 20:50 DC 08/04/16 21:23 10 ML Al Hydroxide/Mg Hydroxide (Maalox Susp) 30 ml NOW STAT PO 08/04/16 20:49 08/04/16 20:50 DC 08/04/16 21:23 30 ML Magnesium Citrate (Citrate Of Magnesia Soln) 296 ml ONE STAT PO 08/04/16 20:59 08/04/16 21:00 DC 08/04/16 21:23 296 ML Procedure The patient was monitored on a hospital monitor. They maintained a normal sinus rhythm without ectopy. ECG Indication: abdominal pain Rate (beats per minute): 63 Rhythm: normal sinus Findings: no acute ischemic change Change: no significant change ED Course The patient was seen and examined. Previous visits were reviewed. The patient does not have a fever or leukocytosis. She does not have any significant electrolyte abnormality. Lactic acid is 1.4. Troponin is not elevated. Lipase is not elevated. INR 0.9. D-dimer was not elevated. Urinalysis was negative. Plain films of the abdomen revealed fecal retention The patient was hydrated with normal saline She was given a GI cocktail She was given mag citrate to take at home The patient presents to the emergency department with abdominal discomfort and bloating. She also complains of a burning sensation in the esophagus which is worse at night. That may represent reflux. The patient does have constipation on x-ray. She has had issues with chronic constipation. There is no evidence for obstruction on plain films. I reevaluated the patient. I discussed obtaining a CT scan of the abdomen and pelvis but the patient refused. She'll be given mag citrate to take at home and to contact GI first thing in the morning for a follow-up. She should return to the ER with any worsening symptoms. The case was discussed with who agrees with the assessment and treatment plan Medical Decision DIFFERENTIAL DIAGNOSIS: Hepatitis, cholecystitis, cholangitis, biliary colic, pancreatitis, pneumonia, subdiaphragmatic abscess, appendicitis, inguinal hernia , nephrolithiasis, inflammatory bowel disease, mesenteric adenitis, peptic ulcer disease, GERD, gastritis, pancreatitis, myocardial infarction, pericarditis, ruptured aortic aneurysm, appendicitis, gastroenteritis, bowel obstruction, splenic infarct, diverticulitis, mesenteric ischemia, metabolic, peritonitis, among others. Impression Primary Impression: Epigastric abdominal pain Additional Impression: Constipation Departure Information Dispostion Home / Self-Care Condition GOOD Referrals Asa Hurtado M.D. (PCP) Ronda Ko CRNP Patient Instructions Constipation, ED GERD, [facility] Additional Instructions Take the mag citrate when you get home Contact gastroenterology tomorrow to discuss the pain and constipation Return with any worsening symptoms Problem Qualifiers Additional Impression:
[2016-08-04 19:37] LABS: BASO % 0.6 %; BASO ABS # 0.05 K/uL (0-0.2); COMPLETE YES; EOS % 2.6 %; HEMATOCRIT 41.6 % (37-47); IG% 0.5 %; LYMPH % 26.5 %; LYMPH ABS # 2.26 K/uL (1.2-3.4); MEAN CELL VOLUME 96.5 fL (80-100); MEAN CORPUSCULAR HEMOGLOBIN 32.3 pg (25-34); MEAN CORPUSCULAR HGB CONC 33.4 g/dl (32-36); MEAN PLATELET VOLUME 10.2 fL (7.4-10.4); NEUT % 64.8 %; PLATELET COUNT 296 K/uL (130-400); RED BLOOD COUNT 4.31 M/uL (4.2-5.4); WHITE BLOOD COUNT 8.54 K/uL (4.8-10.8)
[2016-08-04 19:41] LABS: URINE APPEARANCE CLEAR (CLEAR); URINE BILIRUBIN NEG (NEG); URINE COLOR YELLOW; URINE NITRITE NEG (NEG); URINE SPECIFIC GRAVITY 1.007 (1.000-1.030); UROBILINOGEN NEG (NEG); ZZUR CULT IF INDIC CLEAN CATCH NO
[2016-08-04 19:44] LABS: MANUAL MICROSCOPIC REQUIRED? NO; REVIEW REQ? NO
[2016-08-04] MEDS ORDERED: SUCR1TAB PO (19:53)
[2016-08-04] MEDS ORDERED: PROP20TA67 PO (19:53)
[2016-08-04] MEDS ORDERED: OMEP20CA9 PO (19:53)
[2016-08-04] MEDS ORDERED: LINA1CAP2 PO (19:53)
[2016-08-04 19:54] LABS: INR 0.9 (0.9-1.1); PROTHROMBIN TIME (PATIENT) 9.7 SECONDS (9.0-12.0)
[2016-08-04 19:57] LABS: ALT/SGPT 17 U/L (12-78); BLOOD UREA NITROGEN 14 mg/dl (7-18); BUN/CREATININE RATIO 15.3 (10-20); CALCIUM 9.4 mg/dl (8.5-10.1); CARBON DIOXIDE 27 mmol/L (21-32); CHLORIDE 106 mmol/L (98-107); CREATININE 0.88 mg/dl (0.60-1.20); GLUCOSE 77 mg/dl (70-99); POTASSIUM 3.7 mmol/L (3.5-5.1); SODIUM 140 mmol/L (136-145)
[2016-08-04 20:02] LABS: ALB/GLOB RATIO 1.1 (0.9-2); ALKALINE PHOSPHATASE 115 U/L (45-117); AST/SGOT 10 U/L (15-37)
--- NOTE | 2016-08-04 20:38 | DIAGNOSTIC IMAGING REPORT ---
PA CHEST WITH ABDOMINAL SERIES CLINICAL HISTORY: Upper abdominal pain. Bloating. FINDINGS: A PA chest radiograph is compared to study dated 05/22/2016. The cardiomediastinal silhouette is unremarkable. The lungs and pleural spaces are clear. No pneumothorax is seen. There is chronic posttraumatic deformity of the left clavicle. Supine and erect abdominal radiographs are compared to study dated 05/22/2016 and correlated with abdominal CT dated 07/17/2014. Cholecystectomy clips are seen in the right upper quadrant. There is a nonobstructed abdominal bowel gas pattern. Moderate colonic fecal retention is noted. No intraperitoneal free air is seen. There are numerous phleboliths in the pelvis. The lumbosacral spine and bony pelvis appear intact. IMPRESSION: 1. No active disease in the chest. 2. Nonobstructed abdominal bowel gas pattern noting moderate colonic fecal retention. Electronically signed by: Eliot Quiroz M.D. 08/04/2016 8:36 PM Dictated Date/Time: 08/04/2016 8:35 PM
[2016-08-04] MEDS ORDERED: ALUMINUM/MAGNESIUM SUSP 30 ML UDC PO STA (20:49)
[2016-08-04] MEDS ORDERED: LIDOCAINE HCL 2% VISC SOLN 20 ML UDC PO STA (20:49)
[2016-08-04 20:54] VITALS: BP 152/81; PULSE 63; O2SAT 100
[2016-08-04] MEDS ORDERED: MAGNESIUM CITRATE 296 ML/BTL PO STA (20:59)
== END 2016-08-04 21:23 | disposition home or self-care (01) ==
LOC: C.EDB 19:03
DX: R10.13 Epigastric pain (principal); K59.00 Constipation, unspecified; K21.9 Gastro-esophageal reflux disease without esophagitis; D25.9 Leiomyoma of uterus, unspecified; K29.70 Gastritis, unspecified, without bleeding; Z87.891 Personal history of nicotine dependence; Z79.899 Other long term (current) drug therapy

== ENCOUNTER 2016-11-19 10:28 | Emergency (ER) | payer OTHER ==
[~2016-11-19] VITALS: Ht 154.9 cm; Wt 70.4 kg
[~2016-11-19 10:28] MED LIST changes: +LINA1CAP2 PO; +OMEP20CA9 PO; -ONDA4TAB46 PO; +PROP20TA67 PO; +SUCR1TAB PO
[2016-11-19 10:38] VITALS: TEMP 36.8; Ht 154.9 cm; Wt 70.4 kg
[2016-11-19] MEDS ORDERED: PANT40TA PO (10:49)
[2016-11-19] MEDS ORDERED: LITH600C PO (10:49)
[2016-11-19] MEDS ORDERED: IBUPROFEN 600 MG TAB PO STA (11:06)
--- NOTE | 2016-11-19 11:18 | EMERGENCY ROOM VISIT NOTE ---
ED Visit Note First contact with patient: 11:00 CHIEF COMPLAINT: knee pain HISTORY OF PRESENT ILLNESS: This 46 her old female patient presents to the emergency department with complaints of right knee pain for the past 2-3 weeks. She denies any known injury to the knee. She states she has had surgery on this knee in the past by Dr. Gutierres, and states they are planning to do a total knee replacement when she turns 50. She was seen in Dr. Gutierres's office about a month ago and was given a "gel shot" in her knee, but she states this has not really helped. The patient denies any other complaints besides their knee. The patient no swelling or bruising. There is pain in the front and medial side of the knee. They rate the pain as aching/throbbing and 7/10. The patient states they are able to walk on it. She is able to bend and straighten the knee without significant pain. No numbness or tingling. No previous injuries to this knee. No ankle, foot or hip pain. She denies any fever/chills , redness or swelling of the knee, chest pain, shortness of breath, nausea, vomiting. REVIEW OF SYSTEMS: A 6 system review of systems was completed with positives and pertinent negatives listed in the HPI. ALLERGIES: See chart MEDICATIONS: See chart PMH: See chart SOCIAL HISTORY: See chart PHYSICAL EXAM: Vital Signs: Reviewed Nurse's notes, vital signs stable. GENERAL : Pleasant and cooperative, no acute distress, well-developed, well-nourished. MENTAL STATUS: Alert, oriented to person place and time, and cooperative. MUSCULOSKELETAL: The right knee has some well-healed surgical scars noted. The knee is not swollen, warm to touch, or erythematous. There is no ecchymosis. There is no joint effusion present. The patient is tender in the anterior knee just medial of the patella and along the medial side of the knee.. There is no joint line tenderness. The patella does not subluxate. Range of motion is normal. Strength of the quads and hamstrings is 5/5. Everardo's and Anterior Drawer tests are negative. There is no pain with varus and valgus stressing. The foot and toes are warm and well-perfused. Dorsalis pedis pulse 2+. Sensation to pain and light touch is intact. Capillary refill less than 2 seconds. IMAGING: RIGHT KNEE 1 OR 2 VIEWS ROUTINE CLINICAL HISTORY: Right knee pain COMPARISON: 11/21/2015 DISCUSSION: There are postsurgical changes of an ACL repair. 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 There are no acute fractures. There is no radiographic evidence of a joint effusion. There are minor degenerative changes. IMPRESSION: Stable postsurgical change. No acute fractures. EMERGENCY DEPARTMENT COURSE: I examined the patient. X-rays of the right knee were reviewed by myself and read by radiology and reveal no acute abnormality. The patient was placed in a knee immobilizer under my direction and the position was satisfactory. The patient was instructed on the use of crutches. The patient was given ibuprofen for pain, with good improvement. Patient was instructed to follow-up with Dr. Gutierres. The patient was discharged home in good condition. Medication Reconciliation: I attest that I have personally reviewed the patient' s current medication list. Blood pressure screening: The patient was found to have an elevated blood pressure and was referred to their primary doctor for recheck and further treatment. Problem List Medical Problems: (1) Abdominal pain Status: Resolved (2) Acute epigastric pain Status: Resolved (3) Bilateral renal cysts Status: Chronic (4) Chronic pain of right knee Status: Resolved (5) Chronic pain of right knee Status: Chronic (6) Epigastric abdominal pain Status: Resolved (7) Epigastric abdominal pain Status: Resolved (8) Flank pain Status: Resolved (9) Flank pain Status: Resolved (10) Gastritis Status: Resolved (11) Intra-articular loose body Status: Chronic (12) Intractable abdominal pain Status: Resolved (13) Knee pain Status: Resolved (14) Reflux Status: Chronic (15) Right flank pain Status: Resolved (16) Right flank pain Status: Resolved (17) Right flank pain Status: Resolved (18) Right upper quadrant abdominal pain Status: Resolved (19) Ulcer Status: Resolved (20) Uterine fibroid Status: Chronic Surgical Problems: (1) History of cholecystectomy Status: Resolved (2) History of tubal ligation Status: Resolved (3) S/P ACL repair Status: Resolved (4) S/P endometrial ablation Status: Resolved Current/Historical Medications Scheduled Linaclotide (Linzess), 290 MCG PO DAILY [place] Carbonate ([place] Carbonate), 600 MG PO QAM [place] Carbonate ([place] Carbonate), 1,200 MG PO QPM Pantoprazole (Protonix), 40 MG PO DAILY Propranolol (Inderal), 20 MG PO BID Sucralfate (Sucralfate), 1 GM PO ACHS Allergies Coded Allergies: No Known Allergies (Verified , 11/19/16) Vital Signs Date Time Temp Pulse Resp B/P (MAP) Pulse Ox O2 Delivery O2 Flow Rate FiO2 11/19/16 11:40 61 156/91 97 11/19/16 10:38 36.8 72 18 153/92 98 Room Air Medications Administered Medications (Trade) Dose Ordered Sig/Chelly Route Start Time Stop Time Status Last Admin Dose Admin Ibuprofen (Motrin Tab) 600 mg NOW STAT PO 11/19/16 11:06 11/19/16 11:10 DC 11/19/16 11:15 600 MG Departure Information Impression Primary Impression: Right knee pain Dispostion Home / Self-Care Condition GOOD Referrals No Doctor, Assigned (PCP) Patient Instructions [facility] Additional Instructions Alternate ice and heat to the knee for comfort. Elevate the knee as much as possible to help relieve pain and swelling. Wear knee immobilizer when up and about. Use crutches for minimal weight on foot. Ibuprofen 600 mg and Tylenol 1000 mg every 8 hrs for pain. Follow-up with Dr. Gutierres, Orthopedics, for further evaluation and treatment - call for appointment. This return to the ER for worsening symptoms, including severely swollen/red/hot /painful knee, if you're unable to walk on the knee because of severe pain, fever/chills, or any other concerns Problem Qualifiers Primary Impression: Right knee pain Chronicity: chronic Qualified Codes: M25.561 - Pain in right knee; G89.29 - Other chronic pain
--- NOTE | 2016-11-19 11:23 | DIAGNOSTIC IMAGING REPORT ---
RIGHT KNEE 1 OR 2 VIEWS ROUTINE CLINICAL HISTORY: Right knee pain COMPARISON: 11/21/2015 DISCUSSION: There are postsurgical changes of an ACL repair. 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 There are no acute fractures. There is no radiographic evidence of a joint effusion. There are minor degenerative changes. IMPRESSION: Stable postsurgical change. No acute fractures. Electronically signed by: Shane Mina M.D. 11/19/2016 11:22 AM Dictated Date/Time: 11/19/2016 11:21 AM
[2016-11-19 11:40] VITALS: BP 156/91; PULSE 61; O2SAT 97
== END 2016-11-19 11:42 | disposition home or self-care (01) ==
LOC: C.EDB 10:29 → C.EDD 11:42
DX: M25.561 Pain in right knee (principal); G89.29 Other chronic pain; K21.9 Gastro-esophageal reflux disease without esophagitis; Z79.899 Other long term (current) drug therapy; Z87.19 Personal history of other diseases of the digestive system; Z87.448 Personal history of other diseases of urinary system

== ENCOUNTER → 2017-01-02 | Outpatient (CLI) | payer OTHER ==
[~2017-01-02] MED LIST changes: -OMEP20CA9 PO; +PANT40TA PO
== END | disposition home or self-care (01) ==
LOC: C.RDSM 15:22
PROVIDERS: ATTEND Physical Medicine & Rehabilitation Sports Medicine
DX: M25.561 Pain in right knee (principal)

== ENCOUNTER 2017-05-02 18:24 | Emergency (ER) | payer OTHER ==
[~2017-05-02] VITALS: Ht 154.9 cm; Wt 70.5 kg
[~2017-05-02 18:24] MED LIST changes: -LINA1CAP2 PO; -LITH600C PO; +PANT1TAB3 PO; -PANT40TA PO; -PROP20TA67 PO; +TRAM-10 PO
[2017-05-02 18:29] VITALS: BP 160/96; PULSE 93; TEMP 36.8; O2SAT 99; Ht 154.9 cm; Wt 70.5 kg
[2017-05-02] MEDS ORDERED: ANS100 PO (18:37)
[2017-05-02] MEDS ORDERED: KETOROLAC TROMETHAMINE 60 MG/2 ML VIAL IM STA (18:44)
[2017-05-02] MEDS ORDERED: OXYC-57 PO (18:47)
[2017-05-02] MEDS ORDERED: METH4PAK PO (18:47)
--- NOTE | 2017-05-02 18:51 | EMERGENCY ROOM VISIT NOTE ---
ED Visit Note First contact with patient: 18:33 CHIEF COMPLAINT: right knee bursitis flared up HISTORY OF PRESENT ILLNESS: This 46-year-old female patient presents to the emergency department, ambulatory, complaining of a flare of her bursitis. The pain began worsening 2-3 days ago. The patient states on March 07 of this year, she had surgery regarding her bursitis. She states she had a 6 week follow-up, and was told at that time that it seems to have come back. The patient was encouraged to have physical therapy, but is unable to schedule in with a physical therapist until May. The patient states the pain is in her anterior medial bhatt radiating around into the posterior knee. She states the pain she is experiencing now is exactly like the pain she is experienced previously, however more painful. 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 She states after that, she began experiencing worsening symptoms. She is chronically on flurbiprofen for arthritis pain, and normally takes this medication twice daily. She last took the medication approximately 1-2 hours ago. The patient has taken no OTC pain medication such as Tylenol. She describes the pain as burning and sharp, worse with any pressure or ambulation. The patient did contact Dr. Martini's office on-call, however did not receive a phone call back. The patient does report mild swelling, but no bruising. They rate the pain 10/10. The patient is crying throughout examination due to the pain. No numbness or tingling. No previous injuries to this knee. No recent injury to the knee. No ankle, foot or hip pain. REVIEW OF SYSTEMS: A 6 system review of systems was completed with positives and pertinent negatives listed in the HPI. ALLERGIES: None MEDICATIONS: Lantus, sucralfate, Protonix PMH: Bursitis, GERD SOCIAL HISTORY: The patient lives locally with family. She denies drug, alcohol , tobacco use. PHYSICAL EXAM: Vital Signs: Reviewed Nurse's notes, vital signs stable. GENERAL : This is a 46-year-old white female, no acute distress, but appears in pain, crying during examination, well-developed, well-nourished. MENTAL STATUS: Alert , oriented to person place and time, and cooperative. MUSCULOSKELETAL: The inferior right knee is mildly swollen. There is no ecchymosis. There is no obvious joint effusion present. The patient is tender in the medial/inferior aspect of the knee and medial bhatt. There is no joint line tenderness. The patella does appropriately subluxate. Range of motion is full. Strength of the quads and hamstrings is 5/5. Moon's is negative. Everardo's and Anterior Drawer tests are negative. There is no laxity or discomfort with varus and valgus stressing. The foot and toes are warm and well-perfused. Dorsalis pedis pulse 2+. Sensation to pain and light touch is intact. Capillary refill less than 2 seconds. EMERGENCY DEPARTMENT COURSE: I examined the patient. She does have a chronic history of bursitis, and is currently under the care of orthopedics. She has not been on chronic pain management, but has recently had surgery. She was recently told that the bursitis seems to have returned, and the patient was on her hands and knees scrubbing a floor today. I suspect this flared up her already flared up bursitis/knee pain. While DVT is certainly in my differential , the skin is not warm, nor is it discolored. The patient has no calf pain or palpable cord. She has continued to stay active, despite recent surgery. I discussed concerning symptoms for which to return. The patient was given 60mg toradol IM with mild improvement in symptoms. She will be discharged on steroids and with a short course of pain medication. The patient is encouraged to follow-up with her orthopedic surgeon this week regarding the worsening pain. She was offered crutches or a walker, but declines and states she will picker tender helper a cane OTC. Discharge instructions were reviewed. The patient was discharged home in good condition. I did consult with PDMP prior to prescribing narcotics. No suspicious findings were noted. I attest that I have personally reviewed the patient's current medication list. Blood Pressure Screening: Patient was found to have a slightly elevated blood pressure due to circumstances. I do not believe that the patient requires hypertension monitoring. DIFFERENTIAL DIAGNOSIS: Bursitis, fracture, ligament sprain or strain, contusion , DVT, cellulitis, abscess, malignancy, and others. DIAGNOSIS: Right knee bursitis Problem List Medical Problems: (1) Abdominal pain Status: Resolved (2) Acute epigastric pain Status: Resolved (3) Bilateral renal cysts Status: Chronic (4) Chronic pain of right knee Status: Resolved (5) Chronic pain of right knee Status: Chronic (6) Epigastric abdominal pain Status: Resolved (7) Epigastric abdominal pain Status: Resolved (8) Flank pain Status: Resolved (9) Flank pain Status: Resolved (10) Gastritis Status: Resolved (11) Intra-articular loose body Status: Chronic (12) Intractable abdominal pain Status: Resolved (13) Knee pain Status: Resolved (14) Reflux Status: Chronic (15) Right flank pain Status: Resolved (16) Right flank pain Status: Resolved (17) Right flank pain Status: Resolved (18) Right upper quadrant abdominal pain Status: Resolved (19) Ulcer Status: Resolved (20) Uterine fibroid Status: Chronic Surgical Problems: (1) History of cholecystectomy Status: Resolved (2) History of tubal ligation Status: Resolved (3) S/P ACL repair Status: Resolved (4) S/P endometrial ablation Status: Resolved Current/Historical Medications Scheduled Methylprednisolone (Medrol Dosepak), 0 PO DAILY Scheduled PRN Flurbiprofen (Flurbiprofen), 100 MG PO BID PRN for Pain Linaclotide (Linzess), 290 MCG PO DAILY PRN for PRN Oxycodone/Acetaminophen 5MG/325MG (Percocet 5MG/325MG), 1 TAB PO Q4-6H PRN for Pain Pantoprazole (Protonix), 40 MG PO DAILY PRN for Indigestion Sucralfate (Sucralfate), 1 TAB PO QID PRN for Indigestion Allergies Coded Allergies: No Known Allergies (Verified , 05/02/17) Vital Signs Date Time Temp Pulse Resp B/P (MAP) Pulse Ox O2 Delivery O2 Flow Rate FiO2 05/02/17 18:29 36.8 93 20 160/96 99 Room Air Medications Administered Medications (Trade) Dose Ordered Sig/Chelly Route Start Time Stop Time Status Last Admin Dose Admin Ketorolac Tromethamine (Toradol Inj) 60 mg NOW STAT IM 05/02/17 18:44 05/02/17 18:45 DC 05/02/17 18:52 60 MG Departure Information Impression Primary Impression: Bursitis of right knee Dispostion Home / Self-Care Condition GOOD Prescriptions Oxycodone/Acetaminophen 5MG/325MG (PERCOCET 5MG/325MG) Tab 1 TAB PO Q4-6H Y for Pain, #10 TAB For Initial Treatment Prov: Veronika Lindsay PA-C 05/02/17 Methylprednisolone (MEDROL DOSEPAK) 4 Mg Thaddeus 0 PO DAILY, #1 PKT Prov: Veronika Lindsay PA-C 05/02/17 Referrals Asa Hurtado M.D. (PCP) Abhijit Martini M.D. Patient Instructions ED Bursitis, [facility] Additional Instructions You were seen in the emergency department today for a flareup of your bursitis. You were given Toradol here in the emergency department. Please do not take other anti-inflammatories today. You have been prescribed a Medrol Dosepak. This is a steroid which will help decrease your inflammation, redness, and itch. Take the medicine as prescribed. Take the ENTIRE 6 day course of the steroids. Do not take any NSAIDs while taking steroids. Oxycodone/acetaminophen 5/325mg: Take 1 pill every 4-6 hours as needed for pain. Avoid additional Acetaminophen/Tylenol, alcohol, operating machinery or dangerous equipment, working on ladders or roofs, DRIVING, or situations where being under the influence may be dangerous. It is recommended to use a stool softener such as Colace, 100mg twice daily while taking this medication to avoid constipation. Ibuprofen(Motrin, Advil) may be used for fever or pain. Use 600mg every six hours as needed. Take with food. Avoid using more than 2400mg in a 24 hour period. Do not use 2400mg per day for more than three consecutive days without physician direction. Prolonged inappropriate use can lead to stomach upset or ulcers. Use this or your prescription NSAIDs, but do not take them together and avoid exceeding the recommended daily dosages. (AND/OR) Acetaminophen(Tylenol) may be used for fever or pain. Use 1000mg every six hours as needed. Avoid using more than 3000mg in a 24 hour period. Follow-up with orthopedics in 1-2 days for re-evaluation of your symptoms. Start PT as soon as possible. Return to the ED for worsening pain, redness, discoloration of the leg, numbness or tingling, weakness or falling, or other associated symptoms. Work Instructions Return To Work: 2 days Problem Qualifiers Primary Impression: Bursitis of right knee Knee bursitis location: unspecified Qualified Codes: M70.51 - Other bursitis of knee, right knee
[2017-05-02] MEDS ORDERED: LINA1CAP2 PO (19:53)
== END 2017-05-02 19:05 | disposition home or self-care (01) ==
LOC: C.EDB 18:26 → C.EDD 19:05
DX: M70.51 Other bursitis of knee, right knee (principal); K21.9 Gastro-esophageal reflux disease without esophagitis; N28.1 Cyst of kidney, acquired; Z79.4 Long term (current) use of insulin; Z79.899 Other long term (current) drug therapy

== ENCOUNTER 2017-05-20 16:39 | Emergency (ER) | payer OTHER ==
[~2017-05-20] VITALS: Ht 154.9 cm; Wt 71.4 kg
[~2017-05-20 16:39] MED LIST changes: +ANS100 PO; +LINA1CAP2 PO; +OXYC-57 PO; -TRAM-10 PO
[2017-05-20 16:49] VITALS: BP 181/96; PULSE 72; TEMP 36.8; O2SAT 100; Ht 154.9 cm; Wt 71.4 kg
[2017-05-20] MEDS ORDERED: ABL/5 PO (16:59)
[2017-05-20] MEDS ORDERED: SERT25TA PO (16:59)
--- NOTE | 2017-05-21 00:05 | EMERGENCY ROOM VISIT NOTE ---
ED Visit Note First contact with patient: 16:53 Chief Complaint: Rash. History of Present Illness: Ms. Cary is a 46-year-old white female who ambulates into the ED complaining of a rash on her left upper abdominal area. Historically patient reports she just finished dose steroids for a knee bursitis. Patient reports when she woke this morning she noted a mild burning sensation of the skin in the left upper quadrant. When she looked down she saw a roundish area of erythema. Currently she does not rate her discomfort. She has not identified any aggravating or alleviating factors related to her discomfort. She has not taken any medications for this prior to arrival at the hospital. She denies any associated symptoms including fevers, chills, sweats, skin eruptions, skin color changes, upper respiratory tract symptoms, cough, wheezing, shortness of breath, abdominal pain, nausea/vomiting. Review of Systems: As noted above in history of present illness. Past Medical History: Gastric reflux, uterine fibroid, status post cholecystectomy, tubal ligation, anterior cruciate ligament repair and endometrial ablation. Current Medications: Medications Dose Route/Sig Max Daily Dose Days Date Category Dose Instructions Abilify (Aripiprazole) 5 Mg Tab 5 Mg PO DAILY 05/20/17 Reported Zoloft (Sertraline HCl) 25 Mg Tab 25 Mg PO DAILY 05/20/17 Reported Flurbiprofen 100 Mg Tab 100 Mg PO BID PRN 05/02/17 Reported Protonix (Pantoprazole) 40 Mg Tab 40 Mg PO DAILY PRN 03/06/17 Reported Sucralfate 1 Gm Tab 1 Tab PO QID PRN 30 03/06/17 Reported Linzess (Linaclotide) 290 Mcg Cap 290 Mcg PO DAILY PRN 08/04/16 Reported DOES NOT TAKE ALL OF THE TIME. Allergies to Medications: Patient denies. Social History: Patient is currently employed; she feels safe in her home environment; she denies tobacco and alcohol use. Physical Examination: Vital Signs: Date Time Temp Pulse Resp B/P (MAP) Pulse Ox O2 Delivery O2 Flow Rate FiO2 05/20/17 16:49 36.8 72 16 181/96 100 GENERAL: 46-year-old female in no acute distress, nontoxic-appearing, afebrile and hemodynamically stable. NEUROLOGICAL: Awake, alert and oriented to person, place and time. Answering questions appropriately and following commands. Normal gait. Good hand eye coordination. SKIN: Warm, dry and pink. Left Upper Quadrant: Patient has a mildly erythematous around lesion consistent with an early tinea corporis infection. THORAX: Lungs sounds are clear to auscultation and equal bilaterally with symmetrical chest wall. ABDOMEN: Flat, soft and nontender. Positive bowel sounds in all quadrants. No guarding, rigidity or organomegaly. EXTREMITIES: Moves all extremities well on command and with purpose. All distal neurovascular statuses are intact and equal bilaterally. ED Course: Patient is assessed as noted above. Patient's medication list was reviewed. Patient was educated about today's findings and instructed on her treatment plan ; she verbalizes understanding and agreement with this plan. Clinical Impression: Tinea corporis. Disposition: Patient discharged home in stable condition; prior to departure she was reassessed and subjectively reported she was Plan: Patient was encouraged to use acetaminophen as needed for pain. Patient was encouraged to use OTC Lotrimin ointment 2 times a day. Patient was encouraged to follow-up with her PCP. Patient was encouraged return the ED for worsening rash, fevers, uncontrolled pain or any new/concerning symptoms.
== END 2017-05-20 17:28 | disposition home or self-care (01) ==
LOC: C.EDB 16:40 → C.EDD 17:28
DX: B35.4 Tinea corporis (principal); K21.9 Gastro-esophageal reflux disease without esophagitis; Z98.51 Tubal ligation status; Z90.49 Acquired absence of other specified parts of digestive tract; Z98.890 Other specified postprocedural states; Z79.899 Other long term (current) drug therapy

== ENCOUNTER → 2017-07-03 | Outpatient (CLI) | payer OTHER ==
[~2017-07-03] MED LIST changes: +ABL/5 PO; -OXYC-57 PO; +SERT25TA PO
== END | disposition home or self-care (01) ==
LOC: C.RDSM 13:30
PROVIDERS: ATTEND Physical Medicine & Rehabilitation Sports Medicine
DX: M17.11 Unilateral primary osteoarthritis, right knee (principal)

== ENCOUNTER 2019-06-15 15:31 | Observation (INO) ==
[2019-06-15 15:58] LABS: Basophils # (auto) 0.04 K/uL (0-0.2); Basophils % (auto) 0.5 %; Eosinophils # (auto) 0.04 K/uL (0-0.5); Eosinophils % (auto) 0.5 %; Hematocrit (blood only) 43.3 % (37-47); Hemoglobin 15.2 g/dL (12.0-16.0); Immature Granulocytes # (auto) 0.04 K/uL (0.00-0.02); Immature Granulocytes % (auto) 0.5 %; Lymphocytes # (auto) 2.11 K/uL (1.2-3.4); Lymphocytes % (auto) 27.3 %; Mean Corpuscular Hgb Conc 35.1 g/dL (32-36); Mean Corpuscular Volume 99.8 fL (80-100); Mean Platelet Volume 10.1 fL (7.4-10.4); Monocytes # (auto) 0.32 K/uL (0.11-0.59); Monocytes % (auto) 4.1 %; Neutrophils # (auto) 5.19 K/uL (1.4-6.5); Neutrophils % (auto) 67.1 %; Platelet Count 247 K/uL (130-400); RDW Coefficient of Variation 13.2 % (11.5-14.5); Red Blood Count 4.34 M/uL (4.2-5.4); White Blood Count 7.74 K/uL (4.8-10.8)
[2019-06-15 16:12] LABS: Chloride 106 mmol/L (98-107); Potassium 3.7 mmol/L (3.5-5.1); Sodium 136 mmol/L (136-145)
--- NOTE | 2019-06-15 16:12 | XRay Report ---
SINGLE VIEW CHEST CLINICAL HISTORY: Dyspnea. Dizziness. Atypical chest pain. FINDINGS: An AP, portable, upright chest radiograph is compared to study dated 08/04/2016. The cardiom ediastinal silhouette is unremarkable. The lungs and pleural spaces are clear. No pneumothorax is see n. There is chronic posttraumatic deformity of the left clavicle. IMPRESSION: No active disease in the chest. ACT 112: Negative or not required by law. Electronically signed by: Eliot Quiroz M.D. 06/15/2019 4:10 PM
[2019-06-15 16:14] LABS: D Dimer 400 ug/L FEU (0-500); INR 0.9 (0.9-1.1); Partial Thromboplastin Ratio 1.1; Partial Thromboplastin Time 28.5 Seconds (21.0-31.0); Prothrombin Time 9.6 Seconds (9.0-12.0)
[2019-06-15 16:17] LABS: Alanine Aminotransferase 20 U/L (12-78); Albumin Level 4.1 gm/dl (3.4-5.0); Aspartate Aminotransferase 12 U/L (15-37); BUN Creatinine Ratio 11.3 (10-20); Blood Urea Nitrogen 10 mg/dl (7-18); Carbon Dioxide 24 mmol/L (21-32); Creatinine Clr Calc Pharmacy 69.1 ml/min; Est GFR (African American) 87.6; Est GFR (Non-African American) 75.6; Glucose 90 mg/dl (70-99)
[2019-06-15] MEDS ORDERED: ASPIRIN CHEW 324 MG PO STA (16:18)
[2019-06-15] MEDS ORDERED: NITROGLYCERIN SL 0.4 MG/TAB TAB SL STA (16:18)
[2019-06-15 16:21] LABS: Albumin Globulin Ratio 1.1 (0.9-2); Alkaline Phosphatase 96 U/L (45-117); Bilirubin,Total 0.3 mg/dl (0.2-1); Globulin 3.8 gm/dl (2.5-4.0); Lipase 67 U/L (73-393); Pregnancy Test, Serum Negative (Negative); Total Protein 7.9 gm/dl (6.4-8.2); Troponin I < 0.015 ng/ml (0-0.045)
[2019-06-15] MEDS ORDERED: NITROGLYCERIN 2% OINTMENT 30GM TUBE EXT STA (16:34)
[2019-06-15] MEDS ORDERED: ACETAMINOPHEN 325 MG TAB ONE (19:20)
[2019-06-15] MEDS ORDERED: LINACLOTIDE 72 MCG CAPSULE PO PRN (20:08)
[2019-06-15] MEDS ORDERED: ONDANSETRON INJ 2 MG/ML 2 ML VIAL IV PRN (20:08)
--- NOTE | 2019-06-15 20:31 | History & Physical Report ---
Date of Service June 15, 2019 Assessment & Plan (1) Left-sided chest pain: 48yo C female with history of HTN presenting with intermittent chest discomfort. Troponin x 1 negative, EKG unremarkable. Very low suspicion for ACS at this time -Observation to medical floor with telemetry -Trend troponin -Echo stress test in the AM if troponins remain negative. Can arrange for outpatient if this cannot be obtained tomorrow. -Will hold AM Metoprolol for stress test in AM Present on Admission?: Yes (2) Hypertension: Patient with HTN. Was recently started on Metoprolol for BP control. -Will initiate HCTZ 25mg po daily -Continue Metoprolol after stress testing -Patient should have outpatient followup within 2 weeks of discharge for BP management Present on Admission?: Yes (3) Bipolar 1 disorder: Chronic. Well controlled on current medication regimen -Continue Depakote Present on Admission?: Yes (4) IBS (irritable bowel syndrome): Chronic -Continue Linaclotide Present on Admission?: Yes (5) Depression: Chronic. Well controlled with current medication regimen -Continue Abilify -Continue Sertraline F/E/N - Heplock. Electrolytes WNL, check Mg and replete if needed, Heart healthy diet, NPO after midnight for stress testing Ppx - Low risk for DVT. No ppx indicated Code - Full Dispo - Observation to medical floor with telemetry Present on Admission?: Yes History of Present Illness Chief Complaint: chest pain Primary Care Provider: TIFFANIE Patel Fawn Luong is a 48yo C female with history of BiPolar/Depression/Anxiety as well as HTN and IBS presenting with chest pain. Her pain has been ongoing, intermittent, occurring multiple times per day over the last 2 days. Pain is sharp/shooting and stabbing in the left side of her chest and occasionally into her back and upper abdomen. Pain lasts a couple of minutes then resolves on its own. 9/10 in severity. Associated with shortness of breath, sweating and dizziness. Pain is non-exertions/non-pleuritic and non-positional. She had a severe episode while eating dinner this evening which prompted her to come to the ER. On arrival to the ER her blood pressure was 192/101. Troponin x 1 negative. EKG with no acute ischemic changes. She was administered Nitroglycerin with improvement in pain. Presently CP free. +OCHOA ER Course: ASA, Nitro Allergies Allergy/AdvReac Type Severity Reaction Status Date / Time No Known Allergies Allergy Verified 06/15/19 16:28 Home Medications Home Medications Medication Instructions Recorded Confirmed Type linaclotide [Linzess] 290 mcg PO DIRECTED PRN 07/21/18 06/15/19 History aripiprazole 10 mg tablet 10 mg PO QAM 09/24/18 06/15/19 History sertraline 50 mg tablet 50 mg PO QAM 05/10/19 06/15/19 History divalproex 250 mg PO BID 06/15/19 06/15/19 History divalproex 500 mg PO BID 06/15/19 06/15/19 History metoprolol succinate 50 mg PO QAM 06/15/19 06/15/19 History Past Med/Surg History Medical History (Updated 06/15/19 @ 20:30 by Vandana Anders DO) Bipolar 1 disorder (Chronic) Cervical disc disease (Chronic) Cervical pain (Chronic) Depression (Chronic) Hypertension IBS (irritable bowel syndrome) (Chronic) Myofascial pain (Chronic) Surgical History H/O cervical biopsy (Acute) History of cholecystectomy (Resolved) Family History (Updated 06/15/19 @ 20:21 by Vandana Anders DO) Father Myocardial infarction Around age 70 Mother Pacemaker Other Gallbladder disease Hypertension Social History (Updated 06/15/19 @ 17:19 by Joselyn Lu) Preferred Language: Lithuanian Communication Ability: Effective Visual Impairment: No Limitations Hearing Ability: Normal Beliefs That Will Affect Care: None marital status: Current Living Situation: Spouse current occupational status: employed 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 Other Information That Helps Us Care for You: No Feels Safe at Home: Yes Safety Concerns: Feels Safe At This Time Smoking Status: Former smoker Hx Alcohol Use: No Hx Substance Use: No Review of Systems Review of Systems: All systems reviewed & are unremarkable except as noted in HPI & below Physical Exam Physical Exam: General: patient resting comfortably, NAD, non-toxic in appearance, AA&O x 4, appears anxious Skin: warm, dry, intact, no rashes or lesions, nitro patch on left anterior chest wall HEENT: NC/AT, PERRL, EOMI, anicteric sclera, conjunctiva without injection, external ear normal to inspection and nontender, nares patent, moist mucus membranes, dentition intact, no oropharyngeal lesions, neck supple, trachea midline, no LAD, no thyromegaly, no JVD Heart: +S1/S2, regular, no m/r/g Lungs: equal air entry bilaterally, no rales/rhonchi/wheezes Abd: +BS, soft, NT/ND, no masses/organomegaly/ascites Ext: warm, 2+ pulses in UE/LE bilaterally, no clubbing/cyanosis or edema Neuro: nonfocal, patient AA&O x 4, speech intact, no facial droop, moving all extremities on command with equal strength 5/5 Results & Data Vital Signs (Past 12 Hours) Vital Signs Temp Pulse Pulse Resp BP BP Pulse Ox 06/15/19 20:09 36.4 C L 63 18 155/71 H 96 06/15/19 19:45 68 19 133/85 97 06/15/19 19:30 63 13 123/88 98 06/15/19 19:15 63 21 136/86 98 06/15/19 19:01 67 20 98 06/15/19 19:00 67 16 134/80 98 06/15/19 18:45 64 23 128/79 98 06/15/19 18:31 66 18 98 06/15/19 18:30 65 21 141/87 H 98 06/15/19 18:15 71 16 135/87 97 06/15/19 18:00 69 20 143/88 H 97 06/15/19 17:31 73 28 H 98 06/15/19 17:30 73 17 136/86 98 06/15/19 17:20 72 19 98 06/15/19 17:15 69 18 139/88 98 06/15/19 17:10 65 16 98 06/15/19 17:01 68 23 98 06/15/19 17:00 69 20 159/94 H 98 06/15/19 16:55 67 18 151/97 H 98 06/15/19 16:50 63 18 97 06/15/19 16:49 64 20 176/91 H 97 06/15/19 16:40 70 23 97 06/15/19 16:31 70 23 96 06/15/19 16:30 74 17 143/89 H 97 06/15/19 16:22 83 18 183/99 H 99 06/15/19 16:20 73 18 100 06/15/19 16:10 69 22 100 06/15/19 16:00 68 25 H 06/15/19 15:58 69 21 06/15/19 15:40 36.8 C 76 20 192/101 H 98 Laboratory Results Lab Results 06/15/19 06/15/19 06/15/19 Range/Units 15:47 15:47 15:47 WBC 7.74 (4.8-10.8) K/uL RBC 4.34 (4.2-5.4) M/uL Hgb 15.2 (12.0-16.0) g/dL Hct 43.3 (37-47) % MCV 99.8 (80-100) fL MCH 35.0 H (25-34) pg MCHC 35.1 (32-36) g/dL RDW Std Deviation 48.0 H (36.4-46.3) fL RDW Coeff of Misael 13.2 (11.5-14.5) % Plt Count 247 (130-400) K/uL MPV 10.1 (7.4-10.4) fL Immature Gran % (Auto) 0.5 % Neut % (Auto) 67.1 % Lymph % (Auto) 27.3 % Sargent % (Auto) 4.1 % Eos % (Auto) 0.5 % Baso % (Auto) 0.5 % Immature Gran # (Auto) 0.04 H (0.00-0.02) K/uL Neut # (Auto) 5.19 (1.4-6.5) K/uL Lymph # (Auto) 2.11 (1.2-3.4) K/uL Sargent # (Auto) 0.32 (0.11-0.59) K/uL Eos # (Auto) 0.04 (0-0.5) K/uL Baso # (Auto) 0.04 (0-0.2) K/uL PT 9.6 (9.0-12.0) Seconds INR 0.9 (0.9-1.1) APTT 28.5 (21.0-31.0) Seconds PTT Ratio 1.1 D-Dimer 400 (0-500) ug/L FEU Sodium 136 (136-145) mmol/L Potassium 3.7 (3.5-5.1) mmol/L Chloride 106 (98-107) mmol/L Carbon Dioxide 24 (21-32) mmol/L Anion Gap 6.0 (3-11) BUN 10 (7-18) mg/dl Creatinine 0.90 (0.6-1.2) mg/dl Est Cr Clr Drug Dosing 69.1 ml/min Est GFR ( Amer) 87.6 Est GFR (Non-Af Amer) 75.6 BUN/Creatinine Ratio 11.3 (10-20) Glucose 90 (70-99) mg/dl Calcium 9.0 (8.5-10.1) mg/dl Total Bilirubin 0.3 (0.2-1) mg/dl AST 12 L (15-37) U/L ALT 20 (12-78) U/L Alkaline Phosphatase 96 (45-117) U/L Troponin I < 0.015 (0-0.045) ng/ml Total Protein 7.9 (6.4-8.2) gm/dl Albumin 4.1 (3.4-5.0) gm/dl Globulin 3.8 (2.5-4.0) gm/dl Albumin/Globulin Ratio 1.1 (0.9-2) Lipase 67 L (73-393) U/L HCG, Qual (Negative) 06/15/19 06/15/19 Range/Units 15:47 15:47 WBC (4.8-10.8) K/uL RBC (4.2-5.4) M/uL Hgb (12.0-16.0) g/dL Hct (37-47) % MCV (80-100) fL MCH (25-34) pg MCHC (32-36) g/dL RDW Std Deviation (36.4-46.3) fL RDW Coeff of Misael (11.5-14.5) % Plt Count (130-400) K/uL MPV (7.4-10.4) fL Immature Gran % (Auto) % Neut % (Auto) % Lymph % (Auto) % Sargent % (Auto) % Eos % (Auto) % Baso % (Auto) % Immature Gran # (Auto) (0.00-0.02) K/uL Neut # (Auto) (1.4-6.5) K/uL Lymph # (Auto) (1.2-3.4) K/uL Sargent # (Auto) (0.11-0.59) K/uL Eos # (Auto) (0-0.5) K/uL Baso # (Auto) (0-0.2) K/uL PT (9.0-12.0) Seconds INR (0.9-1.1) APTT (21.0-31.0) Seconds PTT Ratio D-Dimer (0-500) ug/L FEU Sodium (136-145) mmol/L Potassium (3.5-5.1) mmol/L Chloride (98-107) mmol/L Carbon Dioxide (21-32) mmol/L Anion Gap (3-11) BUN (7-18) mg/dl Creatinine (0.6-1.2) mg/dl Est Cr Clr Drug Dosing ml/min Est GFR ( Amer) Est GFR (Non-Af Amer) BUN/Creatinine Ratio (10-20) Glucose (70-99) mg/dl Calcium (8.5-10.1) mg/dl Total Bilirubin (0.2-1) mg/dl AST (15-37) U/L ALT (12-78) U/L Alkaline Phosphatase (45-117) U/L Troponin I (0-0.045) ng/ml Total Protein (6.4-8.2) gm/dl Albumin (3.4-5.0) gm/dl Globulin (2.5-4.0) gm/dl Albumin/Globulin Ratio (0.9-2) Lipase Cancelled (73-393) U/L HCG, Qual Negative (Negative) Diagnostic Findings SINGLE VIEW CHEST CLINICAL HISTORY: Dyspnea. Dizziness. Atypical chest pain. FINDINGS: An AP, portable, upright chest radiograph is compared to study dated 08/04/2016. The cardiomediastinal silhouette is unremarkable. The lungs and pleural spaces are clear. No pneumothorax is seen. There is chronic p osttraumatic deformity of the left clavicle. IMPRESSION: No active disease in the chest. ACT 112: Negative or not required by law. Electronically signed by: Eliot Quiroz M.D. 06/15/2019 4:10 PM Dictated: 06/15/19 161 Transcribed: 06/15/19 1610 ECG Additional Comments: The study shows NSR at 75bpm, normal axis, HZ=641, QRs=8, JOz=271, no acute ischemic changes Code Status & VTE Plan Code Status FULL PG Care Time/CCT Total # of Minutes Spent Total Time Spent with Patient: Total time spent is greater than 50% in coordination of care (as documented) at patient's floor/unit and/or counseling patient: Coding Level of Care Code 32617 OBS Care - Level 3 Diagnoses Left-sided chest pain R07.9 Hypertension I10 Hypertension type: essential hypertension Bipolar 1 disorder F31.9 IBS (irritable bowel syndrome) K58.9 Irritable bowel syndrome type: unspecified Depression F32.9 Depression Type: major depressive disorder Major depression recurrence: unspecified whether recurrent Active/Remission status: remission status unspecified (1) Hypertension Hypertension type: essential hypertension Qualified Code(s): I10 - Essential (primary) hypertension (2) IBS (irritable bowel syndrome) Irritable bowel syndrome type: unspecified Qualified Code(s): K58.9 - Irritable bowel syndrome without diarrhea (3) Depression Depression Type: major depressive disorder Major depression recurrence: unspe cified whether recurrent Active/Remission status: remission status unspecified Qualified Code(s): F32.9 - Major depressive disorder, single episode, unspecified
[2019-06-15 20:37] LABS: Magnesium 2.2 mg/dl (1.8-2.4)
[2019-06-15] MEDS: DIVALPROEX DELAY RELEASE 500 MG TAB PO SCH (21:37)
[2019-06-15] MEDS: DIVALPROEX DELAY RELEASE 250 MG TABEC PO SCH (21:37)
[2019-06-15] MEDS: ACETAMINOPHEN 325 MG TAB PO PRN (22:59)
--- NOTE | 2019-06-15 23:52 | Emergency Department Note ---
Entered by Joselyn Lu acting as a scribe for Reuben Nelson MD ED Provider Note CHIEF COMPLAINT: chest pain HISTORY OF PRESENT ILLNESS: The patient is a 48 year old F who presents to the Emergency Room with complaints of intermittent chest pain that started 2 days ago. The patient states that her chest pain is located in her left chest. She adds that her chest pain radiates to her back. She notes that her chest pain is causing her to experience left arm heaviness. She states that she is also currently experiencing nausea, a headache, and dizziness. She adds that last night, she had dinner and started to experience light-headedness. She states that she has never experienced these problems before. She denies taking anything for her pain. She states that she has a history of high blood pressure. She adds that she cu rrently takes 50mg of metoprolol daily. She notes that she is a former smoker. She denies having a stress test done in the past. She also denies being on any recent long car rides or plane rides. She states that her father and mother have heart issue. She notes that her father had a heart attack, 2 weeks ago. She adds that her mother has a pacemaker in place. She notes that she does not know the a ge of onset of her parents heart issues. Pt denies LOC, fevers, chills, diaphoresis, visual changes, neck pain, breathing difficulties, cough, vomiting, abdominal pain, kidney pain, leg pain, melena, hematochezia, urinary symptoms, numbness, weakness, lymphadenopathy, rash, or other complaints. REVIEW OF SYSTEMS: See HPI for pertinent positives and negatives. A total of ten systems were reviewed and were otherwise negative. PMHx/PSHx: Bipolar, cervical disc disease, depression, IBS, family history of heart issues. SOCIAL HISTORY: Patient lives at home. Former smoker. PHYSICAL EXAM: GENERAL: Awake, alert, well-appearing, in no distress HENT: Normocephalic, atraumatic. Oropharynx unremarkable. EYES: PERRL. Normal conjunctiva. Sclera non-icteric. NECK: Inspection normal. Non-tender. Supple. No nuchal rigidity. FROM. No masses. RESPIRATORY: Clear to auscultation. No wheezes. No rales. Normal respiratory effort. CARDIAC: Normal rate. Normal rhythm. No murmurs. No rubs. Extremities warm and well perfused. Pulses equal. No JVD. GI: Soft, non-distended. No tenderness to palpation. No rebound or guarding. No masses. RECTAL: Deferred. MUSCULOSKELETAL: Atraumatic. Chest examination reveals no tenderness. The back is symmetrical on inspection without obvious abnormality. There is no CVA tenderness to palpation. No joint edema. LOWER EXTREMITIES: Calves are equal size bilaterally and non-tender. No edema. No discoloration. NEURO: Normal sensorium. No sensory or motor deficits noted. SKIN: No rash or jaundice noted. EMERGENCY DEPARTMENT COURSE: 1556: The patient was evaluated in room A4B, and a complete history and physical examination were performed. 1618: The patient has recurrent chest pain. An EKG, aspirin, and nitroglycerin has been ordered on the patient. 1634: The patient experienced relief of her chest pain with the nitroglycerin. 1659: The patient states that she is chest pain free at the moment. The patient is agreeable with the plan for hospitalization. 1711: I reviewed the patient's case with Dr. Vandana Anders, [facility] [place] Hospitalist. She will evaluate the patient for further management. MEDICAL DECISION MAKING: Triage Nursing notes reviewed and agree them. The patient's history was concerning for chest pain. Differential diagnosis: Etiologies such as cardiac ischemia, aortic dissection, pulmonary embolism, pneumonia, pneumothorax, musculoskeletal, infections, pericarditis, myocarditis, esophageal rupture, gastrointestinal, as well as others were entertained. Physical examination: As above. ER treatment provided: Oral aspirin Oral nitro x1 with resolution of chest pain Nitropaste Oral Tylenol On reassessment the patient felt better. Diagnostic interpretation by me: The electrocardiogram was negative for pathologic change x2. The labs revealed an unremarkable CBC and chemistry panel. Troponin negative x1. A d-dimer was performed and it was negative. Based on Wells criteria and a neg ative dimer no further imaging for PE was performed. Imaging studies: Chest x-ray negative for acute process. The patient has had intermittent chest pain for 2 days. She is a former smoker, is hypertensive and has family history of heart disease in both her mother and father. She developed an episode of chest pain here. Repeat ECG did not reveal any acute changes however the patient's pain did resolve with nitroglycerin. She was placed on Nitropaste and even aspirin. I discussed further management in the hospital and the patient was in agreement. Consultation: A consultation was placed with the hospitalist. The case was discussed and diagnostics were reviewed. The patient was evaluated in the ER for further treatment. IMPRESSION: left sided chest pain PLAN: Admitted as inpatient. The scribe's documentation has been prepared under my direction and personally reviewed by me in its entirety. I confirm that the note above accurately reflects all work, treatment, procedures, and medical decision making performed by me. Impression & Plan Left-sided chest pain Past Med/Surg History Medical History (Updated 06/15/19 @ 20:30 by Vandana Anders DO) Bipolar 1 disorder (Chronic) Cervical disc disease (Chronic) Cervical pain (Chronic) Depression (Chronic) Hypertension IBS (irritable bowel syndrome) (Chronic) Myofascial pain (Chronic) Surgical History H/O cervical biopsy (Acute) History of cholecystectomy (Resolved) Family History (Updated 06/15/19 @ 20:22 by Vandana Anders DO) Father Myocardial infarction Around age 70 Mother Pacemaker Other Gallbladder disease Hypertension Social History (Updated 06/15/19 @ 17:19 by Joselyn Lu) Preferred Language: Slovenian Communication Ability: Effective Visual Impairment: No Limitations Hearing Ability: Normal Beliefs That Will Affect Care: None marital status: Current Living Situation: Spouse current occupational status: employed 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 Other Information That Helps Us Care for You: No Feels Safe at Home: Yes Safety Concerns: Feels Safe At This Time Smoking Status: Former smoker Hx Alcohol Use: No Hx Substance Use: No Results & Data Vital Signs Vital Signs - 24 hr 06/15/19 15:40 06/15/19 15:52 06/15/19 15:58 Temperature 36.8 C Temperature Source Oral Pulse Rate 76 69 Pulse Rate from SpO2 Sensor Respiratory Rate 20 21 Blood Pressure 192/101 H Blood Pressure Mean 131 Pulse Oximetry 98 Oxygen Delivery Method Room Air Room Air Sepsis Recent Fever Within 48 Hours No Sepsis New/Unexplained Change in Mental Status No Sepsis Action Taken by Nursing No Action Required 06/15/19 16:00 06/15/19 16:10 06/15/19 16:20 Temperature Temperature Source Pulse Rate 68 69 73 Pulse Rate from SpO2 Sensor 69 74 Respiratory Rate 25 H 22 18 Blood Pressure Blood Pressure Mean Pulse Oximetry 100 100 Oxygen Delivery Method Sepsis Recent Fever Within 48 Hours Sepsis New/Unexplained Change in Mental Status Sepsis Action Taken by Nursing 06/15/19 16:22 06/15/19 16:30 06/15/19 16:31 Temperature Temperature Source Pulse Rate 83 74 70 Pulse Rate from SpO2 Sensor 82 74 70 Respiratory Rate 18 17 23 Blood Pressure 183/99 H 143/89 H Blood Pressure Mean 127 102 Pulse Oximetry 99 97 96 Oxygen Delivery Method Sepsis Recent Fever Within 48 Hours Sepsis New/Unexplained Change in Mental Status Sepsis Action Taken by Nursing 06/15/19 16:40 06/15/19 16:49 06/15/19 16:50 Temperature Temperature Source Pulse Rate 70 64 63 Pulse Rate from SpO2 Sensor 69 64 63 Respiratory Rate 23 20 18 Blood Pressure 176/91 H Blood Pressure Mean 114 Pulse Oximetry 97 97 97 Oxygen Delivery Method Sepsis Recent Fever Within 48 Hours Sepsis New/Unexplained Change in Mental Status Sepsis Action Taken by Nursing 06/15/19 16:55 06/15/19 17:00 06/15/19 17:01 Temperature Temperature Source Pulse Rate 67 69 68 Pulse Rate from SpO2 Sensor 66 70 69 Respiratory Rate 18 20 23 Blood Pressure 151/97 H 159/94 H Blood Pressure Mean 115 107 Pulse Oximetry 98 98 98 Oxygen Delivery Method Room Air Sepsis Recent Fever Within 48 Hours Sepsis New/Unexplained Change in Mental Status Sepsis Action Taken by Nursing 06/15/19 17:10 06/15/19 17:15 06/15/19 17:20 Temperature Temperature Source Pulse Rate 65 69 72 Pulse Rate from SpO2 Sensor 65 68 72 Respiratory Rate 16 18 19 Blood Pressure 139/88 Blood Pressure Mean 97 Pulse Oximetry 98 98 98 Oxygen Delivery Method Sepsis Recent Fever Within 48 Hours Sepsis New/Unexplained Change in Mental Status Sepsis Action Taken by Nursing 06/15/19 17:30 06/15/19 17:31 06/15/19 18:00 Temperature Temperature Source Pulse Rate 73 73 69 Pulse Rate from SpO2 Sensor 73 74 Respiratory Rate 17 28 H 20 Blood Pressure 136/86 143/88 H Blood Pressure Mean 102 102 Pulse Oximetry 98 98 97 Oxygen Delivery Method Room Air Sepsis Recent Fever Within 48 Hours Sepsis New/Unexplained Change in Mental Status Sepsis Action Taken by Nursing 06/15/19 18:15 06/15/19 18:30 06/15/19 18:31 Temperature Temperature Source Pulse Rate 71 65 66 Pulse Rate from SpO2 Sensor 68 65 65 Respiratory Rate 16 21 18 Blood Pressure 135/87 141/87 H Blood Pressure Mean 97 103 Pulse Oximetry 97 98 98 Oxygen Delivery Method Sepsis Recent Fever Within 48 Hours Sepsis New/Unexplained Change in Mental Status Sepsis Action Taken by Long Term Medications Current Medication List: was personally reviewed by me Laboratory Data Attestation: I reviewed the patient's lab results. Result diagrams: 06/15/19 15:47 06/15/19 15:47 Lab Results 06/15/19 06/15/19 06/15/19 Range/Units 15:47 15:47 15:47 WBC 7.74 (4.8-10.8) K/uL RBC 4.34 (4.2-5.4) M/uL Hgb 15.2 (12.0-16.0) g/dL Hct 43.3 (37-47) % MCV 99.8 (80-100) fL MCH 35.0 H (25-34) pg MCHC 35.1 (32-36) g/dL RDW Std Deviation 48.0 H (36.4-46.3) fL RDW Coeff of Misael 13.2 (11.5-14.5) % Plt Count 247 (130-400) K/uL MPV 10.1 (7.4-10.4) fL Immature Gran % (Auto) 0.5 % Neut % (Auto) 67.1 % Lymph % (Auto) 27.3 % [place] % (Auto) 4.1 % Eos % (Auto) 0.5 % Baso % (Auto) 0.5 % Immature Gran # (Auto) 0.04 H (0.00-0.02) K/uL Neut # (Auto) 5.19 (1.4-6.5) K/uL Lymph # (Auto) 2.11 (1.2-3.4) K/uL [place] # (Auto) 0.32 (0.11-0.59) K/uL Eos # (Auto) 0.04 (0-0.5) K/uL Baso # (Auto) 0.04 (0-0.2) K/uL PT 9.6 (9.0-12.0) Seconds INR 0.9 (0.9-1.1) APTT 28.5 (21.0-31.0) Seconds PTT Ratio 1.1 D-Dimer 400 (0-500) ug/L FEU Sodium 136 (136-145) mmol/L Potassium 3.7 (3.5-5.1) mmol/L Chloride 106 (98-107) mmol/L Carbon Dioxide 24 (21-32) mmol/L Anion Gap 6.0 (3-11) BUN 10 (7-18) mg/dl Creatinine 0.90 (0.6-1.2) mg/dl Est Cr Clr Drug Dosing 69.1 ml/min Est GFR ( Amer) 87.6 Est GFR (Non-Af Amer) 75.6 BUN/Creatinine Ratio 11.3 (10-20) Glucose 90 (70-99) mg/dl Calcium 9.0 (8.5-10.1) mg/dl Magnesium 2.2 (1.8-2.4) mg/dl Total Bilirubin 0.3 (0.2-1) mg/dl AST 12 L (15-37) U/L ALT 20 (12-78) U/L Alkaline Phosphatase 96 (45-117) U/L Troponin I < 0.015 (0-0.045) ng/ml Total Protein 7.9 (6.4-8.2) gm/dl Albumin 4.1 (3.4-5.0) gm/dl Globulin 3.8 (2.5-4.0) gm/dl Albumin/Globulin Ratio 1.1 (0.9-2) Lipase 67 L (73-393) U/L HCG, Qual (Negative) 06/15/19 06/15/19 Range/Units 15:47 15:47 WBC (4.8-10.8) K/uL RBC (4.2-5.4) M/uL Hgb (12.0-16.0) g/dL Hct (37-47) % MCV (80-100) fL MCH (25-34) pg MCHC (32-36) g/dL RDW Std Deviation (36.4-46.3) fL RDW Coeff of Misael (11.5-14.5) % Plt Count (130-400) K/uL MPV (7.4-10.4) fL Immature Gran % (Auto) % Neut % (Auto) % Lymph % (Auto) % [place] % (Auto) % Eos % (Auto) % Baso % (Auto) % Immature Gran # (Auto) (0.00-0.02) K/uL Neut # (Auto) (1.4-6.5) K/uL Lymph # (Auto) (1.2-3.4) K/uL [place] # (Auto) (0.11-0.59) K/uL Eos # (Auto) (0-0.5) K/uL Baso # (Auto) (0-0.2) K/uL PT (9.0-12.0) Seconds INR (0.9-1.1) APTT (21.0-31.0) Seconds PTT Ratio D-Dimer (0-500) ug/L FEU Sodium (136-145) mmol/L Potassium (3.5-5.1) mmol/L Chloride (98-107) mmol/L Carbon Dioxide (21-32) mmol/L Anion Gap (3-11) BUN (7-18) mg/dl Creatinine (0.6-1.2) mg/dl Est Cr Clr Drug Dosing ml/min Est GFR ( Amer) Est GFR (Non-Af Amer) BUN/Creatinine Ratio (10-20) Glucose (70-99) mg/dl Calcium (8.5-10.1) mg/dl Magnesium (1.8-2.4) mg/dl Total Bilirubin (0.2-1) mg/dl AST (15-37) U/L ALT (12-78) U/L Alkaline Phosphatase (45-117) U/L Troponin I (0-0.045) ng/ml Total Protein (6.4-8.2) gm/dl Albumin (3.4-5.0) gm/dl Globulin (2.5-4.0) gm/dl Albumin/Globulin Ratio (0.9-2) Lipase Cancelled (73-393) U/L HCG, Qual Negative (Negative) Administered Medications Acetaminophen (Tylenol) 650 mg PO Q4H PRN PRN Reason: pain/fever Stop: 07/15/19 20:07 Last Admin: 06/15/19 22:59 Dose: 650 mg Documented by: [id number] Divalproex Sodium (Depakote Delay Release) 250 mg PO BID LINNEA Stop: 07/15/19 20:59 Last Admin: 06/15/19 21:37 Dose: 250 mg Documented by: [id number] Divalproex Sodium (Depakote Delay Release) 500 mg PO BID LINNEA Stop: 07/15/19 20:59 Last Admin: 06/15/19 21:37 Dose: 500 mg Documented by: [id number] Ondansetron HCl (Zofran) 4 mg IV Q6H PRN PRN Reason: Nausea Stop: 07/15/19 20:07 Last Admin: 06/15/19 23:05 Dose: 4 mg Documented by: [id number] Discontinued Medications Acetaminophen (Tylenol) Confirm Administered Dose 650 mg .ROUTE .STK-MED ONE Stop: 06/15/19 19:21 Last Admin: 06/15/19 19:22 Dose: 650 mg Documented by: [id number] Aspirin (Aspirin) 324 mg PO NOW STA Stop: 06/15/19 16:19 Last Admin: 06/15/19 16:23 Dose: 324 mg Documented by: [id number] Nitroglycerin (Nitrostat) 0.4 mg SL NOW STA Stop: 06/15/19 16:19 Last Admin: 06/15/19 16:23 Dose: 0.4 mg Documented by: [id number] Nitroglycerin (Nitro-Bid 2%) 0.5 inch EXT NOW STA Stop: 06/15/19 16:35 Last Admin: 06/15/19 16:55 Dose: 0.5 inch Documented by: [id number] Imaging Data Radiologist's Impression: Radiology results as stated below per my review and the radiologist's interpretation: SINGLE VIEW CHEST CLINICAL HISTORY: Dyspnea. Dizziness. Atypical chest pain. FINDINGS: An AP, portable, upright chest radiograph is compared to study dated 08/04/2016. The cardiomediastinal silhouette is unremarkable. The lungs and pleural spaces are clear. No pneumothorax is seen. There is chronic posttraumatic deformity of the left clavicle. IMPRESSION: No active disease in the chest. ACT 112: Negative or not required by law. Electronically signed by: Eliot Quiroz M.D. 06/15/2019 4:10 PM ECG Data Attestation: I personally reviewed and interpreted this ECG as follows: Indication: + chest pain Rate (beats per minute): 70 Rhythm: normal sinus ECG Intervals/blocks: + Normal QRS ECG Mcdowell: + Normal ECG ST segments: no ST depression and no ST elevation ECG Findings: no PACs and no PVCs Additional Comments: 2nd EKG: sinus rhythm, rate of 75, premature supraventricular complexes, no elevation, no depression, normal axis. No change from 1st EKG. Blood Pressure Blood Pressure Findings: Elevated blood pressure Blood Pressure Disposition: Referred to patients primary care provider Discharge Plan Visit Data *Final* Discharge Date/Time: 06/15/19 19:59 Chief Complaint: Chest Pain Stated Complaint: CHEST PAIN, HIGH BLOOD PRESSURE ED Provider: Reuben Nelson Discharge Problem: Left-sided chest pain Patient Disposition: Admitted As Inpatient Discharge Instructions Interventions: ED Discharge Assessment Last Done: 06/15/19 19:59 The scribe's documentation has been prepared under my direction and personally reviewed by me in its entirety. I confirm that the note above accurately reflects all work, treatment, procedures, and medical decision making performed by me.
[2019-06-16] MEDS: ACETAMINOPHEN 325 MG TAB PO PRN (06:13)
[2019-06-16] MEDS ORDERED: SERTRALINE HCL 50 MG TABLET PO SCH (09:00)
[2019-06-16] MEDS ORDERED: hydroCHLOROthiazide 25 MG TAB PO SCH (09:00)
[2019-06-16] MEDS ORDERED: ARIPiprazole 10 MG TAB PO SCH (09:00)
[2019-06-16] MEDS: DIVALPROEX DELAY RELEASE 250 MG TABEC PO SCH (10:16)
[2019-06-16] MEDS: DIVALPROEX DELAY RELEASE 500 MG TAB PO SCH (10:16)
--- NOTE | 2019-06-16 11:21 | XCELERA ---
[id number] [id number]
--- NOTE | 2019-06-16 11:51 | Electrocardiogram Report ---
Test Reason : Blood Pressure : / mmHG Vent. Rate : 070 BPM Atrial Rate : 070 BPM P-R Int : 172 ms QRS Dur : 090 ms QT Int : 432 ms P-R-T Axes : 068 008 055 degrees QTc Int : 466 ms Normal sinus rhythm Possible Left atrial enlargement Borderline ECG When compared with ECG of 04-AUG-2016 19:37, No significant change was found Confirmed by Roderick Novak ([id number]) on 06/16/2019 11:50:50 AM Referred By: REFERRED SELF Confirmed By:Roderick Novak
--- NOTE | 2019-06-16 11:53 | Electrocardiogram Report ---
Test Reason : Blood Pressure : / mmHG Vent. Rate : 075 BPM Atrial Rate : 075 BPM P-R Int : 170 ms QRS Dur : 086 ms QT Int : 426 ms P-R-T Axes : 065 -03 059 degrees QTc Int : 475 ms Sinus rhythm with Premature supraventricular complexes Possible Left atrial enlargement Borderline ECG When compared with ECG of 15-JUN-2019 15:43, Premature supraventricular complexes are now Present Confirmed by Roderick Novak ([id number]) on 06/16/2019 11:52:56 AM Referred By: REFERRED SELF Confirmed By:Roderick Novak
--- NOTE | 2019-06-16 14:59 | Discharge Summary ---
Date of Service June 16, 2019 Admission HPI Per Admitting Provider Fawn Luong is a 48yo C female with history of BiPolar/Depression/Anxiety as well as HTN and IBS presenting with chest pain. Her pain has been ongoing, intermittent, occurring multiple times per day over the last 2 days. Pain is sharp/shooting and stabbing in the left side of her chest and occasionally into her back and upper abdomen. Pain lasts a couple of minutes then resolves on its own. 9/10 in severity. Associated with shortness of breath, sweating and dizziness. Pain is non-exertions/non-pleuritic and non-positional. She had a severe episode while eating dinner this evening which prompted her to come to the ER. On arrival to the ER her blood pressure was 192/101. Troponin x 1 negative. EKG with no acute ischemic changes. She was administered Nitroglycerin with improvement in pain. Presently CP free. +OCHOA ER Course: ASA, Nitro Principal Diagnosis Chest Pain Discharge Exam Constitutional WD/WN, vitals as above Eyes + anicteric sclerae ENMT Ears: no hearing impairment Neck trachea midline Respiratory normal respiratory effort, lungs clear to auscultation Cardiovascular RRR, no murmur, no edema Gastrointestinal (Abdomen) Inspection/Auscultation: normal bowel sounds Percussion/Palpation: abdomen soft; abdomen nontender Musculoskeletal no cyanosis or clubbing, extremities motor strength 5/5 Skin no rashes, warm and dry Neurologic moves all extremities Psychiatric A+Ox3, euthymic affect Discharge Data Allergies Allergy/AdvReac Type Severity Reaction Status Date / Time No Known Allergies Allergy Verified 06/15/19 16:28 Consultations 06/15/19 17:02 ED Decision to Admit Stat Hospital Course (1) Left-sided chest pain: - Troponin negative x 2; EKG without ischemic findings; Stress echo without ischemic findings and needed to stopped due to leg fatigue but was completed at 87% max -- She did not have reproduced chest pain but BP was noted to be 200 systolic - No specific cardiac cause identified - discussed possibility of GI symptoms vs musculoskeletal as causes -- She does report bloating and maybe a component of reflux contributing? If ongoing could consider PPI - She has a H/O clavicular fracture but denies any issues with this (2) Hypertension: - She was started on Metoprolol recently and states she has ongoing higher BP readings. - On admission she was started on HCTZ and this was discussed with her. Can trial this at 12.5 mg daily as I would not want to dehydrate her and given her other medications she could be at increased risk for hyponatremia - Advised her to purchase a BP cuff to track her pressures and to not stress about the reading if she gets a high one. Just write it down and can even make a note with it if she was up moving around/stressed and can present this to her PCP - Will have navigator arrange close F/U for BP management (3) Bipolar 1 disorder: - Chronic. Well controlled on current medication regimen - Continue Depakote and Abilify (4) IBS (irritable bowel syndrome): - Chronic - Continue Linaclotide (5) Depression: - Chronic. Well controlled with current medication regimen -Continue Sertraline Total Time Total Time Spent Total Time Spent (In Minutes): Greater than 30 minutes Discharge Plan Discharge Items Patient Disposition: Home - Self-Care Reason For Visit: CHEST PAIN Discharge Diagnosis: Chest Pain Activity: Resume your previous activity Non-emergency contact: Primary Care Provider Call non-emergency contact if: you have any medication questions, your symptoms worsen and you have a fever Follow-up/Referrals: Mayda Ronquillo CRNP [Primary Care Provider] - Diet: Heart Healthy Addtl Attending Provider Instructions: Chest Pain: - It is not completely certain what is the cause. This could be GI related (reflux, esophageal spasm) or it may be some from high blood pressure readings. Some people can be sensitive to changes in their blood pressure. As well, if it runs high it can stress you out/make you anxious and can cause you to have chest pain. - Thankfully there is no signs of ischemia (lack of blood flow) to your heart. You EKG (heart rhythm) does not show signs of a heart attack. Troponins (cardiac markers) are negative. These are markers that are released into the blood when the heart is injured. So thankfully this is not occurring. Your stress test was normal. High Blood Pressure: - Continue your Metoprolol as prescribed. - You were started on HCTZ (hydrochlorothiazide) on admission. We can trial this to see if this gives you better control. Will start slow on this to not cause low blood pressures. - Recommend to get a blood pressure cuff to measure this at home to take to your family doctor. This can help them better manage your pressure. - Do not stress if a higher blood pressure is taken. Just write it down and maybe jot down if you were just walking around or feeling stressed so that can help see what may be spiking the blood pressures. Home Medications: - Continue home medications as previously prescribed. We did not make changes to these. Pending Studies at Discharge: No Stand-Alone Forms: Call Back Authorization, My [facility], Smoking Cessation Medications and DC Order Prescriptions: New hydrochlorothiazide 12.5 mg tablet 12.5 mg PO DAILY 30 Days Qty: 30 RF: 0 Continued aripiprazole [Abilify] 10 mg tablet 10 mg PO QAM RF: 0 Linzess 290 mcg capsule 290 mcg PO DIRECTED PRN (Reason: Restless Leg(S)) RF: 0 sertraline [Zoloft] 50 mg tablet 50 mg PO QAM RF: 0 divalproex 250 mg tablet,delayed release (DR/EC) 250 mg PO BID RF: 0 metoprolol succinate 50 mg tablet extended release 24 hr 50 mg PO QAM RF: 0 divalproex 500 mg tablet,delayed release (DR/EC) 500 mg PO BID RF: 0 Discharge Orders: Discharge Order (Routine); Ordered 06/16/19 Ordered By: Michelle Flowers Admission Data Admit Date/Time: 06/15/19 18:36 Attending Provider: Elías Hu Admit Provider: Vandana Anders Primary Care Provider: Mayda Ronquillo Other Providers: Vandana Anders Other Interventions: Discharge Summary Assessment (RN) Last Done: 06/16/19 12:16 DC Date/Time DO NOT enter until pt leaves facility: 06/16/19 13:26 Supervising Physician Co-Signing Physician Notes During my face to face encounter with the patient, I performed a brief history and obtained a physical examination. I reviewed above note and agree with it. I have discussed discharge plan with patient as well. Her chest pain does not appear to be cardiac in nature at this time given her exam findings and history. Will discharge patient. Coding Level of Care Code D/C Day Management >30 mins Diagnoses Left-sided chest pain R07.9 Hypertension I10 Hypertension type: essential hypertension Bipolar 1 disorder F31.9 IBS (irritable bowel syndrome) K58.9 Irritable bowel syndrome type: unspecified Depression F32.9 Active/Remission status: remission status unspecified Depression Type: major depressive disorder Major depression recurrence: unspecified whether recurrent
== END 2019-06-16 13:26 | disposition home or self-care (01) ==
LOC: 2N 15:31 → ED 15:31 → SUATTDRO 18:36 → 2N 19:59